=== PATIENT | female | born 1950 | race Caucasian/White ===

== ENCOUNTER 2016-04-09 06:26 | Inpatient (IN) | payer OTHER, MEDICARE ==
[~2016-04-09] VITALS: Ht 167.6 cm; Wt 74.8 kg
[~2016-04-09 06:26] MED LIST: ADVIL200 MG PO; ATIVAN1 M1 PO; BENADRYL 50 MG50 MG PO; BENADRYL ALLERG25 M1 PO; BREO ELLIPTA1 POW INH; FENTANYL25 MCG/HR TOP; LEVOTHYROXINE0.15 MG PO; LEVOTHYROXINE0.2 M2 PO; LEVOTHYROXINE200 MC1 PO; LISINOPRIL10 MG PO; LISINOPRIL5 M1 PO; LOVASTATIN20 MG PO; MAGNESIUM OXID400 MG PO; NOVAPLUS F100 MCG/HR TOP; NOVAPLUS FE50 MCG/HR TOP; OMEPRAZOLE20 M2 PO; OXYCODONE HCL20 M1 PO; OXYCODONE HCL20 MG PO; OXYCODONE HCL30 MG PO; PHENERGAN25 MG PR; PRAVACHOL20 M2 PO; PROMETHAZINE25 M1 PO; REQUIP 0.5MG0.5 MG PO; SPIRIVA18 MCG INH; SYNTHROID0.175 MG PO; VENTOLIN HFA18 GM INH; VITAMIN D50000 IU PO; ZANAFLEX4 M1 PO; ZOFRAN4 M1 PO; ZOLOFT 100 MG100 MG PO
--- NOTE | 2016-04-09 06:39 | NUR ---
PT BIBA FROM HOME. PT WAS FOUND WITHOUT HER BIPAP ON THIS AM. PER EMS 02 SAT 83%. PER EMS FAMILY STATES PT IS SLOW TO RESPOND AT BASELINE, BUT THE PAST COUPLE DAYS PT HAS BEEN EVEN SLOWER WITH RESPONDING. UPON ED ARRIVAL PT 88% ON RA. PLACED ON 4L NC AT 94%. PT NONVERBAL AT THIS TIME BUT RESPONSIVE TO PAIN.
--- NOTE | 2016-04-09 06:41 | NUR ---
DR FULLER AT BEDSIDE FOR EVAL.
--- NOTE | 2016-04-09 06:51 | ED GENERAL ADULT ---
History of Present Illness General Chief Complaint: Dyspnea (COPD, CHF, Other) Stated Complaint: BIBA LOW 02 Source: old records, EMS Exam Limitations: confusion Vital Signs & Intake/Output Vital Signs & Intake/Output Vital Signs Date Time Temp Pulse Resp B/P Pulse O2 O2 Flow FiO2 Ox Delivery Rate 04/09 925 69 20 109/71 97 BIPAP 04/09 0818 71 97 04/09 0801 75 18 126/64 98 BIPAP 04/09 0734 99.6 85 18 85/55 95 BIPAP 04/09 0720 87 94 04/09 0703 94 Nasal 4.0L Cannula 04/09 0640 100.1 97 16 90/52 94 Nasal 4.0L Cannula Allergies Coded Allergies: diazepam (SWELLING 07/14/15) gabapentin (UNKNOWN 07/14/15) methadone (SWELLING 07/14/15) NSAIDS (Non-Steroidal Anti-Inflamma (Intermediate, HISTORY OF ULCERS 07/14/15) morphine (Intermediate, AGITATION 07/14/15) adhesive tape (RASH 07/14/15) Triage Note: PT BIBA FROM HOME. PT WAS FOUND WITHOUT HER BIPAP ON THIS AM. PER EMS 02 SAT 83%. PER EMS FAMILY STATES PT IS SLOW TO RESPOND AT BASELINE, BUT THE PAST COUPLE DAYS PT HAS BEEN EVEN SLOWER WITH RESPONDING. UPON ED ARRIVAL PT 88% ON RA. PLACED ON 4L NC AT 94%. PT NONVERBAL AT THIS TIME BUT RESPONSIVE TO PAIN. Triage Nurses Notes Reviewed? yes HPI: Patient has been lethargic ever since her stroke however she has been more lethargic over the past 3 days. Family went to check on her this morning and found her almost unresponsive in bed. Patient is taken off her BiPAP mask at some point during the night. Upon EMS arrival patient's oxygen saturation was in the mid 70s. Patient was given a nebulizer and placed on oxygen and her O2 sat slowly improved. Patient is currently only open up her eyes to command and the only verbal response we got was "yes"and patient is not adding anything further to the history. (JONNY RASHEED,TIA Curry) Reconcile Medications Albuterol Sulfate (Ventolin Hfa) 90 MCG HFA.AER.AD 2 PUFF PO PRN COPD ( Reported) ERGOCALCIFEROL (VITAMIN D2) (Vitamin D2) 50,000 UNIT CAPSULE 1 CAP PO Q10D VIT D DEFFICIENCY (Reported) FLUTICASONE/VILANTEROL (Breo Ellipta 100-25 Mcg INH) 100 MCG-25 MCG/DOSE BLST.W.DEV 1 PUFF INH DAILY copd Levothyroxine Sodium 112 MCG TABLET 1 TAB PO DAILY thyroid (Reported) Lisinopril 5 MG TABLET 10 MG PO DAILY HYPERTENSION Lorazepam (Ativan) 1 MG TAB 1-2 TAB PO TID PRN ANXIETY (Reported) Omeprazole 20 MG CAPSULE.DR 40 MG PO DAILY AC [facility] OXYCODONE HCL (Oxycodone HCl) 30 MG TABLET 1 TAB PO 4 TIMES/DAY PRN PAIN ( Reported) Pravastatin Sodium (Pravastatin) 20 MG TAB 1 TAB PO QPM CHOLESTEROL (Reported ) Ropinirole Hydrochloride (Requip 0.5MG) 0.5 MG TAB 0.5 TAB PO TID RESTLESS LEG SYNDROME Tiotropium Peever (Spiriva) 18 MCG CAP.W.DEV 1 CAP INH DAILY COPD (Reported) Tizanidine Hydrochloride (Zanaflex) 4 MG TAB 1 TAB PO 4 TIMES/DAY MUSCLE SPASMS (Reported) (SUSHMA RASHEED,CHINMAY) Past History Travel History Traveled to [place] past 21 day No Medical History Any Pertinent Medical History? 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 No (JONNY RASHEED,TAI Curry) Review of Systems Review of Systems Constitutional: Reports: see HPI. (JONNY RASHEED,TIA Curry) Physical Exam Physical Exam General Appearance: well developed/nourished, alert, awake, moderate distress Head: atraumatic, normal appearance Eyes: Bilateral: PERRL, EOMI. Ears, Nose, Throat: normal pharynx, normal ENT inspection, hearing grossly normal Neck: normal inspection, supple, full range of motion Respiratory: normal breath sounds, chest non-tender, no respiratory distress, lungs clear Cardiovascular: regular rate/rhythm, normal peripheral pulses Gastrointestinal: normal bowel sounds, soft, non-tender, no organomegaly Back: normal inspection, normal range of motion Extremities: normal inspection, normal capillary refill, normal range of motion, no edema Neurologic/Psych: NOT FOLLOWING COMMANDS. pATIENT MOVES ALL 4 EXTREMITIES INDEPENDENTLY. pATIENT WILL OPEN UP HER EYES TO VERBAL COMMAND. Reflexes: 2+: knee (R), knee (L). Skin: intact, normal color, warm/dry Lymphatic: no anterior cervical gretchen Core Measures ACS in differential dx? Yes CVA/TIA Diagnosis: No Severe Sepsis Present: No Septic Shock Present: No (JONNY RASHEED,TIA Curry) Progress Differential Diagnoses I considered the following diagnoses in my evaluation of the patient: [AMI, electrolyte abnormality, CVA, hypercarbic respiratory failure, UTI, pneumonia] Plan of Care: Orders Procedure Date/time Status CBC WITHOUT DIFFERENTIAL 04/10 06 Active BASIC ELECTROLYTES PLUS BUN&CR 04/10 0600 Active Heart Healthy Diet 04/09 L Active ARTERIAL BLOOD GAS (GEN) 04/09 1200 Complete BIPAP 04/09 0918 Complete Pathway - chart 04/09 0856 Active Code Status 04/09 0856 Active URINE DRUGS OF ABUSE 04/09 0853 Active Patient Data 04/09 0851 Active TRC EVALUATION (GEN) 04/09 0844 Active Admit to inpatient 04/09 0803 Active Vital Signs 04/09 0803 Active Code Status 04/09 0803 Complete URINALYSIS 04/09 0730 Active EKG 04/09 0729 Active BIPAP 04/09 0720 Complete Add-on Test (ER Only) 04/09 0651 Active Intake & Output 04/09 0641 Active ARTERIAL BLOOD GAS (GEN) 04/09 0636 Complete Telemetry/Infrastructure Administrator 04/09 0636 Active BLOOD CULTURE 04/09 0636 Active TROPONIN LEVEL 04/09 0636 Complete MAGNESIUM 04/09 0636 Complete COMPREHENSIVE METABOLIC PANEL 04/09 0636 Complete CBC WITHOUT DIFFERENTIAL 04/09 0636 Complete INCENTIVE SPIROMETRY TRX (GEN) 04/09 UNK Active House Staff 04/09 UNK Active VTE Mechanical Prophylaxis 04/09 UNK Active Vital Signs 04/09 UNK Active Current Medications Sig/Sol Start time Last Medication Dose Stop Time Status Admin Omeprazole 40 MG DAILY AC 04/10 0700 AC (Prilosec) Methylprednisolone 40 MG Q8 04/10 0600 AC (Solumedrol) Pravastatin Sodium 20 MG 1700 04/09 1700 AC (Pravachol) Tizanidine HCl 4 MG Q6 04/09 1200 AC (Zanaflex) Lisinopril 10 MG DAILY 04/09 1000 CAN (Prinivil) Oxycodone HCl 30 MG 4 TIMES/DAY PRN 04/09 0945 AC (Roxicodone) Lorazepam 1 MG TID PRN 04/09 0900 AC (Ativan) Laboratory Tests 04/09/16 1200: pH 7.35, pCO2 55 H, pO2 72 L, HCO3 30 H, ABG O2 Sat (Measured) 95.0 L, P-50 (Temp Corrected) N, Carboxyhemoglobin 2.9, O2 Concentration % 4L, Respiration Rate 0, O2 Delivery Method BIPAP, Vent Mode ST, Expiratory Pressure 6, Inspiratory Pressure 16, Phlebotomy Draw Site RIGHT BRACHIAL 04/09/16 0650: pH 7.30 *L, pCO2 65 *H, pO2 71 L, HCO3 32 H, ABG O2 Sat (Measured) 94.0 L, P- 50 (Temp Corrected) N, Carboxyhemoglobin 3.0, O2 Concentration % 4L, O2 Delivery Method N/C, Phlebotomy Draw Site RIGHT BRACHIAL 04/09/16 0647: Anion Gap 13, Estimated GFR > 60, BUN/Creatinine Ratio 25.6 H, Glucose 91, Calcium 9.6, Magnesium 1.8, Total Bilirubin 0.9, AST 26, ALT 28, Alkaline Phosphatase 66, Troponin I 0.06, Total Protein 7.8, Albumin 4.4, Globulin 3.4, Albumin/Globulin Ratio 1.3, CBC w Diff NO MAN DIFF REQ, RBC 5.65 H, MCV 89.4, MCH 29.3, RDW 14.7 H, MPV 9.3, Gran % 89.7 H, Lymphocytes % 5.9 L, Monocytes % 3.8, Eosinophils % 0, Basophils % 0.6, Absolute Granulocytes 10.7 H, Absolute Lymphocytes 0.7 L, Absolute Monocytes 0.5, Absolute Eosinophils 0, Absolute Basophils 0.1, PUBS MCHC 32.7 L Microbiology 04/09 655 BLOOD: Blood Culture - RECD 04/09 646 BLOOD: Blood Culture - RECD 7:20 AM Patient signed out to me by Dr. Taylor. Pending labs, xray. Respiratory therapy looking for a bipap unit. (CHINMAY ORDAZ MD) Initial ED EKG: SINUS RHYTHM WITH INFERIOR q WAVES AND NONSPECIFIC st-t CHANGES. nO CHANGE FROM PRIOR ekg. Prior EKG: unchanged Rhythm Strip: normal sinus rhythm Hand-Off Endorsed To: CHINMAY ORDAZ MD Endorsed Time: 0700 Pending: CT, labs (JONNY RASHEED,TIA Curry) Diagnostic Imaging: Viewed by Me: Radiology Read, CT Scan. Discussed w/RAD: Radiology Read, CT Scan. Radiology Impression: EXAM TYPE: CAT - CT HEAD WO IV CONTRAST EXAMINATION: CT HEAD WITHOUT CONTRAST CLINICAL INFORMATION: CVA, confusion COMPARISON: 2015 TECHNIQUE: Contiguous axial imaging was performed from the skull base to vertex without intravenous administration of contrast. DLP: 600.71 mGy-cm. FINDINGS: There is no evidence of acute intracranial hemorrhage or territorial infarction. No abnormal mass effect or midline shift is seen. Oates to white matter differentiation is well preserved. No extra-axial fluid collections are identified. The ventricles are normal in size. There is a region of encephalomalacia in the inferior left cerebellar hemisphere, at the site of prior hemorrhage seen on 07/16/2015. There is moderate periventricular white matter hypoattenuation consistent with chronic small vessel ischemic disease. A chronic appearing lacunar infarct is noted in the right basal ganglia. There is mild periventricular white matter hypoattenuation consistent with chronic small vessel ischemic disease. The osseous structures and soft tissues are normal. The mastoid air cells and visualized portions of the paranasal sinuses are well aerated. IMPRESSION: No acute intracranial pathology. Chronic changes as described above. CXR Impression: EXAM TYPE: RAD - XRY-PORTABLE CHEST XRAY EXAMINATION: XR PORTABLE CHEST CLINICAL INFORMATION: Shortness of breath COMPARISON: CT 2015 TECHNIQUE: Portable view of the chest was obtained. FINDINGS: Lung volumes are symmetric. There is relative lucency of the upper lungs, in keeping with emphysema. No focal consolidation is seen. No evidence of pneumothorax, pleural effusion, or pulmonary edema. Cardiac size is within normal limits. There is mild prominence of the main pulmonary artery. Calcification is present at the aortic arch. No acute osseous findings are seen. IMPRESSION: No focal consolidation. Emphysema. (CHINMAY ORDAZ MD) Departure Departure Disposition: STILL A PATIENT Condition: Stable Clinical Impression Primary Impression: Hypercapnic respiratory failure Secondary Impressions: Confusion, Hypercarbia Referrals: JEFRY DESHPANDE,DUGLAS SHAFER (PCP/Family) Departure Forms: Customer Survey General Discharge Information (TIA TAYLOR MD) Departure Time of Disposition: 803 Prescriptions: Current Visit Scripts Lisinopril 10 MG PO DAILY 30 Days Admission Note Spoke With: MAIKOL ALLEN MD Documentation of Exam: Documentation of any treatments & extenuating circumstances including Concerns Regarding Discharge (functional status, medication knowledge or non-compliance, living conditions, etc.) that warrant an admission rather than observation: [ BIPAP, REPEAT BLOOD GAS, TRC/NEBS, PULMONARY CONSULT. FOLLOW UP URINALYSIS, URINE TOXICOLOGY] (CHINMAY ORDAZ MD) Critical Care Note Critical Care Note Critical Care Time: mins: (30 MIN) (JONNY RASHEED,TIA Curry)
--- NOTE | 2016-04-09 06:58 | NUR ---
BLOOD CULTURES SENT TO LAB, OBTAINED WITH BUTTERFLY AND 2 DIFFERENT SITES, BY THIS RN AND OLVIN PIERRE. LABS SENT WELL (1 BLUE, 1 LAV, 1 SST, 1 DELUCA)
--- NOTE | 2016-04-09 07:00 | NUR ---
PER FAMILY PT NOT USUALLY ON 02 DURING THE DAY AT HOME, BUT FOR THE PAST COUPLE DAYS PT HAS BEEN ON 3.5L.
[2016-04-09 07:03] LABS: ABSOLUTE BASOPHIL COUNT 0.1 /CUMM (0.0-0.2); ABSOLUTE EOSINOPHIL COUNT 0 /CUMM (0.0-0.7); ABSOLUTE GRANULOCYTE CT 10.7 /CUMM (1.4-6.5); ABSOLUTE LYMPH COUNT 0.7 /CUMM (1.2-3.4); ABSOLUTE MONOCYTE COUNT 0.5 /CUMM (0.10-0.60); BASOPHIL % 0.6 % (0.0-2.0); EOSINOPHIL % 0 % (0-5); HEMATOCRIT 50.5 % (37-47); MEAN CORPUSCULAR HGB 29.3 PG (27.0-31.0); MEAN CORPUSCULAR HGB CONC 32.7 G/DL (33.0-37.0); MEAN CORPUSCULAR VOLUME 89.4 FL (81.0-99.0); MEAN PLATELET VOLUME 9.3 FL (7.4-10.4); RBC DISTRIBUTION WIDTH 14.7 % (11.5-14.5); RED BLOOD CELL CT 5.65 /CUMM (4.20-5.40); WHITE BLOOD CELL COUNT 11.9 /CUMM (4.8-10.8)
[2016-04-09 07:21] LABS: PLATELET COUNT 207 /CUMM (130-400)
[2016-04-09 07:22] LABS: GRANULOCYTE % 89.7 % (42.2-75.2)
--- NOTE | 2016-04-09 07:32 | NUR ---
ASSUMED CARE OF PT AT THIS TIME PT SITTING UP ON STRETCHER WITH EYES OPEN; RT CLAY IN ROOM TO PLACE PT ON BIPAP. B/P 85/55. DR ORDAZ AWARE AND IN ROOM FOR EVAL. 500 ML NORMAL SALINE INFUSING PER MAR. PT DENIES PAIN AND IS ABLE TO STATE SHE IS IN [facility]; DOES NOT RECALL HOW SHE GOT TO HOSPITAL THIS MORNING AND STATES SHE DOES NOT NORMALLY WEAR 02 AT HOME DURING THE DAY. FAMILY STATE PT HAD A BAD DAY ON NEW YEARS - "HER OXYGEN WAS LOW BUT WE PUT HER ON HER MACHINE AGAIN AND SHE CAME AROUND". WILL CONTINUE TO MONITOR.
--- NOTE | 2016-04-09 07:35 | RADIOLOGY REPORT ---
EXAMINATION: XR PORTABLE CHEST CLINICAL INFORMATION: Shortness of breath COMPARISON: CT 07/16/2015 TECHNIQUE: Portable view of the chest was obtained. FINDINGS: Lung volumes are symmetric. There is relative lucency of the upper lungs, in keeping with emphysema. No focal consolidation is seen. No evidence of pneumothorax, pleural effusion, or pulmonary edema. Cardiac size is within normal limits. There is mild prominence of the main pulmonary artery. Calcification is present at the aortic arch. No acute osseous findings are seen. IMPRESSION: No focal consolidation. Emphysema.
--- NOTE | 2016-04-09 07:44 | CT SCAN REPORT ---
EXAMINATION: CT HEAD WITHOUT CONTRAST CLINICAL INFORMATION: CVA, confusion COMPARISON: 07/16/2015 TECHNIQUE: Contiguous axial imaging was performed from the skull base to vertex without intravenous administration of contrast. DLP: 600.71 mGy-cm. FINDINGS: There is no evidence of acute intracranial hemorrhage or territorial infarction. No abnormal mass effect or midline shift is seen. Oates to white matter differentiation is well preserved. No extra-axial fluid collections are identified. The ventricles are normal in size. There is a region of encephalomalacia in the inferior left cerebellar hemisphere, at the site of prior hemorrhage seen on 07/16/2015. There is moderate periventricular white matter hypoattenuation consistent with chronic small vessel ischemic disease. A chronic appearing lacunar infarct is noted in the right basal ganglia. There is mild periventricular white matter hypoattenuation consistent with chronic small vessel ischemic disease. The osseous structures and soft tissues are normal. The mastoid air cells and visualized portions of the paranasal sinuses are well aerated. IMPRESSION: No acute intracranial pathology. Chronic changes as described above.
--- NOTE | 2016-04-09 08:02 | NUR ---
1ST 500 ML NORMAL SALINE BOLUS COMPLETE. B/P IMPROVED TO 126/64 2ND 500 ML BOLUS INFUSING PER MAR. PT REMAINS AWAKE, ALERT AND CONVERSANT ON BIPAP. FAMILY AT BEDSIDE.
[2016-04-09] MEDS ORDERED: LEVOTHYROXINE112 MCG PO (08:46)
[2016-04-09] MEDS ORDERED: LISINOPRIL5 M1 PO (08:48)
--- NOTE | 2016-04-09 08:53 | NUR ---
POC: REPEAT BLOOD GAS AT 0900 RT CLAY AWARE OF SAME
--- NOTE | 2016-04-09 09:24 | NUR ---
PER DR INGRAM, BIPAP SETTINGS WERE ADJUSTED BY RT CLAY AND BLOOD GAS WILL BE REPEATED IN "A FEW HOURS". PT ASKING TO EAT - BAGEL ORDERED THROUGH DIETARY. NORMAL SALINE INFUSING @ 75 ml/hr PER JUN. DR INGRAM AT BEDSIDE
--- NOTE | 2016-04-09 09:25 | NUR ---
PHARMACY CALLED FOR 1000 MEDS
--- NOTE | 2016-04-09 10:02 | History & Physical ---
GAMAL HADDAD 04/09/16 0946: General Information and HPI MD Statement: I have seen and personally examined SERENA WATSON and documented this H&P. The patient is a 66 year old F who presented with a patient stated chief complaint of [unresponsiveness]. Source of Information: patient, family, old records Exam Limitations: on bipap History of Present Illness: 66-year-old lady with past medical history of hypothyroidism post Graves, CVA with minimal residual, COPD on nocturnal BiPAP, 3.5 L oxygen in the morning, chronic back pain and oxycodone, restless leg syndrome, hyperlipidemia, daily a smoker 1 pack in 3 days, was brought to the hospital by family with chief complaint of unresponsiveness. Information was given by the patient and the family. The family reports that patient sometimes is noncompliant with the CPAP during the night. This morning CPAP was off and patient was unresponsive to verbal stimuli, not responding to the CPAP putting on her face. According to the family CPAP noncompliance sometimes happens and the patient is lethargic and drowsy the following day. However this time is different and it's worse. He also reported patient had mostly dry cough with very minimal phlegm for 3 or 2 days. Patient and the family denies chest pain, dizziness, nausea, vomiting, diarrhea, constipation, fevers, chills, recent sick contacts.Patient reports having occasional headaches as well. Vital signs on arrival blood pressure 90/52, respiratory 16, temperature 100.1, MN 94 , O2 saturation 94% on 4 L and then subsequently on BiPAP. ABG shows 7.3 pH, CO2 65, O2 71, WBC 11.9, hemoglobin 16.5, sodium 136, chloride 89, bicarbonate 34, creatinine 0.9, BUN 23 After 1 L of bolus normal saline blood pressure came back up to 126/69 CXR: showed emphysema head CT : Did not show any acute pathology Allergies/Medications Allergies: Coded Allergies: diazepam (SWELLING 07/14/15) gabapentin (UNKNOWN 07/14/15) methadone (SWELLING 07/14/15) NSAIDS (Non-Steroidal Anti-Inflamma (Intermediate, HISTORY OF ULCERS 07/14/15) morphine (Intermediate, AGITATION 07/14/15) adhesive tape (RASH 07/14/15) Home Med list Albuterol Sulfate (Ventolin Hfa) 90 MCG HFA.AER.AD 2 PUFF PO PRN COPD ( Reported) ERGOCALCIFEROL (VITAMIN D2) (Vitamin D2) 50,000 UNIT CAPSULE 1 CAP PO Q10D VIT D DEFFICIENCY (Reported) FLUTICASONE/VILANTEROL (Breo Ellipta 100-25 Mcg INH) 100 MCG-25 MCG/DOSE BLST.W.DEV 1 PUFF INH DAILY copd Levothyroxine Sodium 112 MCG TABLET 1 TAB PO DAILY thyroid (Reported) Lisinopril 5 MG TABLET 10 MG PO DAILY HYPERTENSION Lorazepam (Ativan) 1 MG TAB 1-2 TAB PO TID PRN ANXIETY (Reported) Omeprazole 20 MG CAPSULE.DR 40 MG PO DAILY AC [facility] OXYCODONE HCL (Oxycodone HCl) 30 MG TABLET 1 TAB PO 4 TIMES/DAY PRN PAIN ( Reported) Pravastatin Sodium (Pravastatin) 20 MG TAB 1 TAB PO QPM CHOLESTEROL (Reported ) Ropinirole Hydrochloride (Requip 0.5MG) 0.5 MG TAB 0.5 TAB PO TID RESTLESS LEG SYNDROME Tiotropium Welsh (Spiriva) 18 MCG CAP.W.DEV 1 CAP INH DAILY COPD (Reported) Tizanidine Hydrochloride (Zanaflex) 4 MG TAB 1 TAB PO 4 TIMES/DAY MUSCLE SPASMS (Reported) Past History Travel History Traveled to [place] past 21 day No Medical History Neurological: restless leg syndrome, NUMBNESS/NEUROPATHY BLE EENT: NONE Cardiovascular: hypertension, HIGH CHOLESTEROL Respiratory: COPD, emphysema Gastrointestinal: constipation, GERD, RUPTURED SPLEEN IN PAST Hepatic: cholelithiasis Renal: NONE Musculoskeletal: chronic back pain, disk herniation, NUMBNESS/BLE SPINAL FUSION Psychiatric: NONE Endocrine: Grave's disease, hypothyroidism Blood Disorders: NONE Cancer(s): NONE 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 Exam & Diagnostic Data Last 24 Hrs of Vital Signs/I&O Vital Signs Date Time Temp Pulse Resp B/P Pulse O2 O2 Flow FiO2 Ox Delivery Rate 04/09 0926 69 20 109/71 97 BIPAP 04/09 0918 71 97 04/09 0801 75 18 126/64 98 BIPAP 04/09 0734 99.6 85 18 85/55 95 BIPAP 04/09 0720 87 94 04/09 0703 94 Nasal 4.0L Cannula 04/09 0640 100.1 97 16 90/52 94 Nasal 4.0L Cannula Intake & Output 04/09 1600 04/09 0800 04/09 0000 Intake Total 1000 0 Output Total Balance 1000 0 Intake, IV 1000 Intake, Oral 0 Patient 165 lb Weight Physical Exam General Appearance Alert, Oriented X3, Cooperative, No Acute Distress, on bipap Cardiovascular Regular Rate, Normal S1, Normal S2 Lungs decreased breath sounds bilaterally Abdomen Normal Bowel Sounds, No Tenderness Neurological Strength at 5/5 X4 Ext Extremities No Clubbing, No Cyanosis, No Edema, healed ecchymosis on the right knee Assessment/Plan Assessment: 66-year-old lady with past medical history of hypothyroidism post Graves, CVA with minimal residual, COPD on nocturnal BiPAP, 3.5 L oxygen in the morning, chronic back pain and oxycodone, restless leg syndrome, hyperlipidemia, daily a smoker 1 pack in 3 days, was brought to the hospital by family with chief complaint of unresponsiveness. According to the family CPAP noncompliance sometimes happens and the patient is lethargic and drowsy the following day. However this time is different and it's worse. He also reported patient had mostly dry cough with very minimal phlegm for 3 or 2 days. Vital signs on arrival blood pressure 90/52, respiratory 16, temperature 100.1, MN 94 , O2 saturation 94% on 4 L and then subsequently on BiPAP. ABG shows 7.3 pH, CO2 65, O2 71, WBC 11.9, hemoglobin 16.5, sodium 136, chloride 89, bicarbonate 34, creatinine 0.9, BUN 23 After 1 L of bolus normal saline blood pressure came back up to 126/69 CXR: showed emphysema head CT : Did not show any acute pathology EKG showed process 78, NSR, reverse P waves in V1, QTC 455, no acute ST-T changes Assessment and plan #Acute respiratory failure due to CPAP noncompliance and COPD exacerbation -TRC nebs and continue inhalers -Admit to general floor -BiPAP for at least 8 hours -ABG at noon -125 mg Solu-Medrol once and continue 40 mg Q8 -Azithromycin for 5 doses -Blood culture and try to get the sputum culture -Check urine tox -We'll follow Dr. Gaspar -Smoking cessation #hx of hypertension / hypotensive -Hold lisinopril for now -IV hydration for one back -Heart healthy diet #Chronic back pain, restless legs syndrome, anxiety -Continue oxycodone when necessary, continue tizanidine, continue Requip, continue Ativan when necessary #Hypothyroidism -Continue levothyroxine #GERD, hyperlipidemia -Continue omeprazole and statin #DVT prophylaxis is ALP S and enoxaparin, DNR/DNI, oxycodone for pain, heart healthy diet As Ranked By This Provider Problem List: 1. Hypercarbia 2. Confusion Core Measures/Miscellaneous Acute Coronary Syndrome ACS Diagnosis: No Cerebrovascular Accident CVA/TIA Diagnosis: No Congestive Heart Failure CHF Diagnosis: No Venous Thromboembolism VTE Risk Factors: Age > 40 VTE Prophylaxis Ordered Inpt: Mech & Pharm No Mech VTE prophylaxis d/t: No contraindications No VTE Pharm Prophylaxis d/t: No contraindications VTE Diagnosis: No VTE Type: NONE VTE Confirmed by (Test): NONE Severe Sepsis Severe Sepsis Present: No Septic Shock Septic Shock Present: No Miscellaneous Documentation Attending Case Discussed With: MAIKOL ALLEN MD Primary Care Physician: DUGLAS TAVERA Patient sees these Specialists dr carter Level of Patient Care: General Medicine MAIKOL ALLEN MD 04/10/16 1250: Attending MD Review Statement Attending Statement Attending MD Statement: examined this patient, discuss w/resident/PA/LANDMAN, agreed w/resident/PA/LANDMAN, reviewed EMR data (avail) Attending Assessment/Plan: 66F PMH COPD on nocturnal home oxygen, history of CVA, chronic back pain on chronic opioids presenting with confusion, unresponsiveness, and dyspnea in the setting of acute hypercarbic respiratory failure. Dry cough and worsenin dyspnea for 2-3 days, poorly compliant with CPAP, continues to smoke. Started on BiPAP initially in ED with improvement in mental status. Plan - Admit to general medicine - Start Solumedrol 40mg q8h - TRC/nebulizer treatments - Start Azithromycin - Continue PRN BiPAP - Oxygen PRN goal sat >92% - Continue home medicaitons - DVT PPx - Follow pulmonary recommendatins
--- NOTE | 2016-04-09 10:15 | NUR ---
PT TAKEN OFF BIPAP FOR APPROX 5-8 MINUTES. DRANK 1 CAN RICHY JUDSON. MED WITH 1000 PO MEDS PER MAR, INCLUDING 2 INHALERS. PLACED BACK ON BIPAP, TOLERATED WELL.
--- NOTE | 2016-04-09 10:30 | NUR ---
MED WITH SOLU MEDROL AND ZITRHOMAX PER MAR. BIPAP REMAINS. PT ANSWERS QUESTIONS THROUGH MASK. INFORMED A URINE SAMPLE IS NEEDED WHEN ABLE.
--- NOTE | 2016-04-09 10:43 | Cons- Pulmonary ---
General Information and HPI Consulting Request Date of Consult: 04/09/16 Requested By: Dr. Parada Reason for Consult: hypercarbic resp failure Source of Information: patient Exam Limitations: no limitations History of Present Illness: 66 year old woman admitted for hypercarbic respiratory failure after resuming smoking. CVA hemorrhagic history left cerebral hemisphere. It was determined that she had PRODUCTION PROOFREADER stroke and hemorrhage. Patient now DNR/DNI. A tiny PFO noted. ROBINA without evidence of thrombus or mass apical wall motion abnormalities were not noted. Using her CPAP. Mask fits well, no mask leaks, compliant, feels better and without daytime somnolence. On spiriva, BREO with rinsing of the mouth. She is on her inhalers however continues to smoke and resumed smoking more up to a few cigarettes daily, second hand smoke exposure as well, despite quitting attempts. Sleep study was performed she has 88 arousals supine AHI as high as 25.3. CPAP was ordered awaiting equipment. Narrow complex tachycardia overnight. She also has a previous diagnosis of restless legs and is treated adequately without any changes. She does not believe that she had those symptoms during driving. When she does take her inhalers she is maintained on BREO and Spiriva. Restless leg syndrome controlled on Requip three times daily. Hypercarbia 7.3/65/71 required bipap. Repeat abg pending. CXR with emphysema changes. Allergies/Medications Allergies: Coded Allergies: diazepam (SWELLING 07/14/15) gabapentin (UNKNOWN 07/14/15) methadone (SWELLING 07/14/15) NSAIDS (Non-Steroidal Anti-Inflamma (Intermediate, HISTORY OF ULCERS 07/14/15) morphine (Intermediate, AGITATION 07/14/15) adhesive tape (RASH 07/14/15) Home Med List: Albuterol Sulfate (Ventolin Hfa) 90 MCG HFA.AER.AD 2 PUFF PO PRN COPD ( Reported) ERGOCALCIFEROL (VITAMIN D2) (Vitamin D2) 50,000 UNIT CAPSULE 1 CAP PO Q10D VIT D DEFFICIENCY (Reported) FLUTICASONE/VILANTEROL (Breo Ellipta 100-25 Mcg INH) 100 MCG-25 MCG/DOSE BLST.W.DEV 1 PUFF INH DAILY copd Levothyroxine Sodium 112 MCG TABLET 1 TAB PO DAILY thyroid (Reported) Lisinopril 5 MG TABLET 10 MG PO DAILY HYPERTENSION Lorazepam (Ativan) 1 MG TAB 1-2 TAB PO TID PRN ANXIETY (Reported) Omeprazole 20 MG CAPSULE.DR 40 MG PO DAILY AC [facility] OXYCODONE HCL (Oxycodone HCl) 30 MG TABLET 1 TAB PO 4 TIMES/DAY PRN PAIN ( Reported) Pravastatin Sodium (Pravastatin) 20 MG TAB 1 TAB PO QPM CHOLESTEROL (Reported ) Ropinirole Hydrochloride (Requip 0.5MG) 0.5 MG TAB 0.5 TAB PO TID RESTLESS LEG SYNDROME Tiotropium [place] (Spiriva) 18 MCG CAP.W.DEV 1 CAP INH DAILY COPD (Reported) Tizanidine Hydrochloride (Zanaflex) 4 MG TAB 1 TAB PO 4 TIMES/DAY MUSCLE SPASMS (Reported) Current Medications: Current Medications Sig/Sol Start time Last Medication Dose Route Stop Time Status Admin Azithromycin 500 MG DAILY 04/09 1000 AC 04/09 Sodium Chloride 250 ML IV 04/13 1059 1030 Budesonide/ 2 PUF BID 04/09 1000 AC 04/09 Formoterol Fumarate INH 1015 Levothyroxine Sodium 0.112 MG DAILY AC 04/09 0900 AC 04/09 PO 1014 Lisinopril 10 MG DAILY 04/09 1000 CAN PO Lorazepam 1 MG TID PRN 04/09 0900 AC PO Methylprednisolone 40 MG Q8 04/10 0600 AC IV Methylprednisolone 0 .STK-MED ONE 04/09 1020 DC .ROUTE Methylprednisolone 125 MG ONCE ONE 04/09 0945 DC 04/09 IV 04/09 0946 1029 Omeprazole 40 MG DAILY AC 04/10 0700 AC PO Oxycodone HCl 30 MG 4 TIMES/DAY PRN 04/09 0945 AC PO Pravastatin Sodium 20 MG 1700 04/09 1700 AC PO Ropinirole HCl 0.25 MG TID 04/09 1000 AC 04/09 PO 1015 Sodium Chloride 1,000 ML Q13H 04/09 0915 AC 04/09 IV 04/09 2214 0924 Sodium Chloride 500 ML BOLUS ONE 04/09 0730 DC 04/09 IV 04/09 0829 0732 Sodium Chloride 500 ML BOLUS ONE 04/09 0730 DC 04/09 IV 04/09 0829 0802 Tiotropium [place] 1 PUF DAILY 04/09 1000 AC 04/09 INH 1015 Tizanidine HCl 4 MG Q6 04/09 1200 AC PO Review of Systems Comments 18 point Review of Systems performed. Positive and negative pertinent findings are deliniated in the HPI. Otherwise the ROS is negative. 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: BRYNN Surgical History Surgical History: cholecystectomy, hysterectomy, spinal fusion, ROTATOR CUFF X 2 cervical and lumbar surgery Family History Relations & Conditions If Any: Relation not specified for: *No pertinent family history Psychosocial History Services at Home: Oxygen Smoking Status: Current Everyday Smoker (1 pack 3 days) ETOH Use: denies use, 6 Illicit Drug Use: denies illicit drug use, UTD Exam & Diagnostic Data Last 24 Hrs of Vital Signs/I&O Vital Signs Date Time Temp Pulse Resp B/P Pulse O2 O2 Flow FiO2 Ox Delivery Rate 04/09 0926 69 20 109/71 97 BIPAP 04/09 0918 71 97 04/09 0801 75 18 126/64 98 BIPAP 04/09 0734 99.6 85 18 85/55 95 BIPAP 04/09 0720 87 94 04/09 0703 94 Nasal 4.0L Cannula 04/09 0640 100.1 97 16 90/52 94 Nasal 4.0L Cannula Intake & Output 04/09 1600 04/09 0800 04/09 0000 Intake Total 1000 0 Output Total Balance 1000 0 Intake, IV 1000 Intake, Oral 0 Patient 165 lb Weight Physical Exam Other Physical Findings: General - Alert, awake and oriented HEENT - normocephalic, atraumatic Cardiovascular - S1, S2 Lungs - bilatearl rare rhonchi, prolonged end expiratory phase Abdomen - soft, bowel sounds positive, no tenderness Extremities - without edema or cyanosis Last 48 Hrs of Labs/Jamison: Laboratory Tests 04/09/16 0650: pH 7.30 *L, pCO2 65 *H, pO2 71 L, HCO3 32 H, ABG O2 Sat (Measured) 94.0 L, P- 50 (Temp Corrected) N, Carboxyhemoglobin 3.0, O2 Concentration % 4L, O2 Delivery Method N/C, Phlebotomy Draw Site RIGHT BRACHIAL 04/09/16 0647: Anion Gap 13, Estimated GFR > 60, BUN/Creatinine Ratio 25.6 H, Glucose 91, Calcium 9.6, Magnesium 1.8, Total Bilirubin 0.9, AST 26, ALT 28, Alkaline Phosphatase 66, Troponin I 0.06, Total Protein 7.8, Albumin 4.4, Globulin 3.4, Albumin/Globulin Ratio 1.3, CBC w Diff NO MAN DIFF REQ, RBC 5.65 H, MCV 89.4, MCH 29.3, RDW 14.7 H, MPV 9.3, Gran % 89.7 H, Lymphocytes % 5.9 L, Monocytes % 3.8, Eosinophils % 0, Basophils % 0.6, Absolute Granulocytes 10.7 H, Absolute Lymphocytes 0.7 L, Absolute Monocytes 0.5, Absolute Eosinophils 0, Absolute Basophils 0.1, PUBS MCHC 32.7 L Assessment/Plan Impression/Plan: Impression 66 year old woman admitted for hypercarbic respiratory failure after resuming smoking. CVA hemorrhagic history left cerebral hemisphere. It was determined that she had PRODUCTION PROOFREADER stroke and hemorrhage. Patient now DNR/DNI. A tiny PFO noted. ROBINA without evidence of thrombus or mass apical wall motion abnormalities were not noted. Using her CPAP. Mask fits well, no mask leaks, compliant, feels better and without daytime somnolence. On spiriva, BREO with rinsing of the mouth. She is on her inhalers however continues to smoke and resumed smoking more up to a few cigarettes daily, second hand smoke exposure as well, despite quitting attempts. Sleep study was performed she has 88 arousals supine AHI as high as 25.3. CPAP was ordered awaiting equipment. Narrow complex tachycardia overnight. She also has a previous diagnosis of restless legs and is treated adequately without any changes. She does not believe that she had those symptoms during driving. When she does take her inhalers she is maintained on BREO and Spiriva. Restless leg syndrome controlled on Requip three times daily. Hypercarbia 7.3 required bipap. Repeat abg pending. CXR with emphysema changes. Plan -reduce solumedrol to 40mg iv q8h -zithromax 5 days -trc/nebs -d/c symbicort - takes breo at home - can bring in her own, or wait until d/c -repeat abg today, if improved would resume nocturnal CPAP @ 6cmH20 nocturnally -smoking cessation counseling -dvt prophylaxis at all times Thank you in allowing me to participate in the care of this patient. I will continue to follow along with the patient's progress. Please do not hesitate to call about any questions or issues. Consult Acknowledgment - Thank you for your consult request.
--- NOTE | 2016-04-09 11:15 | NUR ---
REPORT GIVEN TO OLVIN GIANG
[2016-04-09 16:50] VITALS: BP 136/66
--- NOTE | 2016-04-09 16:52 | Admission Certification ---
Admission Certification Certification Statement - As attending physician, I certify that at the time of - admission, based on clinical presentation, severity of - symptoms, need for further diagnostic testing and - therapeutic interventions, and risk of adverse outcomes - without in-hospital treatment, in my clinical assessment, - this patient requires an acute hospital stay for a minimum - of two nights or longer. I have also considered psychsocial - factors such as support system, advanced age, financial - issues, cognitive issues, and failed out-patient treatments, - past re-admission history, safety of patient, and lack of - compliance as applicable. Specific rationale supporting this admission is: Acute hypercarbic respiratory failure
--- NOTE | 2016-04-09 19:12 | NUR ---
PT ASSIGNED BED 201
--- NOTE | 2016-04-09 20:03 | NUR ---
REPORT GIVEN TO Joseph FABIAN ON B. PT. PREPARING FOR TRANSPORT. PT. AT BEDSIDE. VITAL SIGNS STABLE AT THIS TIME. PT. IS ALERT AND ORIENTED. NO ACUTE DISTRESS NOTED.
--- NOTE | 2016-04-09 20:10 | NUR ---
TRANSPORT CALLED AND SCHEDULED WITH
[2016-04-09 20:56] VITALS: BP 146/78
--- NOTE | 2016-04-09 23:59 | NUR ---
NURSING NOTE; LATE ENTRY; PT ADMITTED TO ROOM 201-01 AT 2030 VIA STRETCHER FROM THE ER. PT AMBULATED TO BED WITH AN ASSISTX1. PT ALERT AND ORIENTEDX3 BUT HAS AN UNSTEADY GAIT. PT AFEBRILE, DENIES CP AND HAS +PULSES TO EXTREMITIES. PT ON 4LNC WITH AN 02 SAT OF 94%, LUNGS ARE DIMINISHED. PT HAS NO SKIN BREAKDOWN. PT COMPLAINING OF 7 OUT OF 10 PAIN TO HER LOWER BACK. PT MEDICATED WITH PRN PAIN MED. IVF RUNNING PER EMAR. PT ORIENTED TO ROOM AND CALL ALEJANDRA. WILL CONTINUE TO MONITOR.
[2016-04-10 00:42] VITALS: BP 140/80
--- NOTE | 2016-04-10 06:00 | NUR ---
PT IS A&OX3 AND HAS A HISTORY OF FALLS. THIS MORNING PT ASKED IF THE BED ALARM CAN BE REMOVED. PT WAS TOLD SHE NEEDS TO CALL FOR HELP IF SHE NEEDS TO GET UP. PT STATED UNDERSTANDING AND SAID SHE WILL USE CALL ALEJANDRA. BED ALARM NOT IN PLACE AT THIS TIME PER PT REQUEST. WILL CONTINUE TO MONITOR.
[2016-04-10 08:03] LABS: ABSOLUTE BASOPHIL COUNT 0 /CUMM (0.0-0.2); ABSOLUTE EOSINOPHIL COUNT 0 /CUMM (0.0-0.7); ABSOLUTE GRANULOCYTE CT 2.9 /CUMM (1.4-6.5); ABSOLUTE MONOCYTE COUNT 0.7 /CUMM (0.10-0.60); RED BLOOD CELL CT 5.31 /CUMM (4.20-5.40)
[2016-04-10 08:49] LABS: ABSOLUTE LYMPH COUNT 1.5 /CUMM (1.2-3.4); BASOPHIL % 0.4 % (0.0-2.0); EOSINOPHIL % 0.5 % (0-5); HEMATOCRIT 47.3 % (37-47); MEAN CORPUSCULAR HGB 29.7 PG (27.0-31.0); MEAN CORPUSCULAR HGB CONC 33.3 G/DL (33.0-37.0); MEAN CORPUSCULAR VOLUME 89.2 FL (81.0-99.0); MEAN PLATELET VOLUME 9.9 FL (7.4-10.4); PLATELET COUNT 170 /CUMM (130-400); RBC DISTRIBUTION WIDTH 14.7 % (11.5-14.5)
[2016-04-10 08:52] VITALS: BP 140/80
[2016-04-10 08:58] LABS: WHITE BLOOD CELL COUNT 5.1 /CUMM (4.8-10.8)
--- NOTE | 2016-04-10 09:07 | PN- Housestaff ---
SAMIR WILKES 04/10/16 0906: Subjective Follow-up For: COPD exacerbation Subjective: Reports feeling much better today offers no other complaints. Would like to ambulate Review of Systems Constitutional: Denies: chills, diaphoresis, fever, malaise, weakness, unexplained weight loss. Cardiovascular: Denies: chest pain, edema, orthopena, palpitations, peripheral edema, syncope. Respiratory: Denies: cough, hemoptysis, orthopnea, short of breath, sputum production, stridor, wheezing. Objective Last 24 Hrs of Vital Signs/I&O Vital Signs Date Time Temp Pulse Resp B/P Pulse O2 O2 Flow FiO2 Ox Delivery Rate 04/10 0852 98.3 63 20 140/80 93 Nasal 4.0L Cannula 04/10 0800 93 Nasal 4.0L Cannula 04/10 0455 58 98 04/10 0042 97.5 64 20 140/80 93 CPAP 04/10 0032 63 99 04/10 0000 93 CPAP 04/09 2056 98.4 68 20 146/78 91 Nasal 5.0L Cannula 04/09 2030 94 Nasal 4.0L Cannula 04/09 1952 98.1 71 22 141/82 94 Nasal 4.0L Cannula 04/09 1650 97.6 68 18 136/66 99 04/09 1457 71 92 04/09 1439 90 BIPAP 04/09 1205 74 95 Intake & Output 04/10 1600 04/10 0800 04/10 0000 Intake Total 120 525 Output Total 300 100 350 Balance -300 20 175 Intake, IV 225 Intake, Oral 120 300 Output, Urine 300 100 350 Physical Exam General Appearance: Alert, Oriented X3, Cooperative, No Acute Distress Cardiovascular: Regular Rate, Normal S1, Normal S2 Lungs: b/l rhonchi Abdomen: Normal Bowel Sounds, Soft Extremities: No Edema Assessment/Plan Assessment: 66-year-old woman current smoker with past medical history significant for hypothyroidism, CVA with minimal neurological deficits, COPD on nocturnal BiPAP and 3 L of oxygen in the morning, chronic back pain admitted to [facility] after she was found unresponsive, found to have hypercarbic hypoxic respiratory failure. Today she feels that her breathing has improved. Plan: Hypercarbic hypoxic respiratory failure Currently saturating the 93% on 4 L of oxygen taper oxygen tolerated TRC with nebs Will be Solu-Medrol every 12hrs today On azithromycin day 2 of 5 She does on Breo at home will hold while in the hospital as we don't carry it Will attempt further smoking cessation counseling prior to discharge Pulmn on board appreciate recommendations Hypothyroidism Continue home dose of Synthyroid CAD Continue statin Heart healthy diet DVT prophylaxis with Lovenox Patient is DNR/DNI Problem List: 1. Hypercapnic respiratory failure 2. COPD (chronic obstructive pulmonary disease) 3. Acute CVA (cerebrovascular accident) 4. Hypothyroid Pain Ratin Pain Location: Not applicable Pain Goal: Pain 4 or less Pain Plan: current regimen Tomorrow's Labs & Rationales: hypercarbia will follow BEP tomorrow MAIKOL ALLEN MD 04/10/16 1254: Attending MD Review Statement Attending Statement Attending MD Statement: examined this patient, discuss w/resident/PA/DIVERSIFIED CROPS II FARMWORKER, agreed w/resident/PA/DIVERSIFIED CROPS II FARMWORKER, reviewed EMR data (avail) Attending Assessment/Plan: 66F PMH COPD on nocturnal home oxygen, history of CVA, chronic back pain on chronic opioids presenting with confusion, unresponsiveness, and dyspnea in the setting of acute hypercarbic respiratory failure. Dry cough and worsenin dyspnea for 2-3 days, poorly compliant with CPAP, continues to smoke. Started on BiPAP initially in ED with improvement in mental status. Today feels much better, breathing improved and near baseline. At baseline mental status. Not requiring oxygen during the day. 1. Acute hypercarbic and hypoxemic respiratory failure 2. Acute exacerbation of COPD 3. Unresponsiveness (resolved) 4. Chronic lower back pain Plan - Taper Solumedrol to 40mg q12h with plan for further taper tomorrow - TRC/nebulizer treatments - Continue Azithromycin - Continue PRN BiPAP - Oxygen PRN goal sat >92% - Continue home medicaitons - DVT PPx - Follow pulmonary recommendations - Anticipated discharge tomorrow on Prednisone taper with outpatient follow up - Please send CMR to pharmacy and place anticipated discharge order - No labs necessary tomorrow
--- NOTE | 2016-04-10 10:37 | PN- Pulmonary ---
Subjective HPI/Critical Care Issues: pt seen and examined donig better comfortable on o2 sitting and eating breakfast no n/v/d/c no cp no dyspnea at rest Objective Current Medications: Current Medications Sig/Sol Start time Last Medication Dose Route Stop Time Status Admin Azithromycin 500 MG DAILY 04/09 1000 AC 04/10 Sodium Chloride 250 ML IV 04/13 1059 0905 Budesonide/ 2 PUF BID 04/09 2200 DC 04/09 Formoterol Fumarate INH 2232 Budesonide/ 2 PUF BID 04/09 1000 DC 04/09 Formoterol Fumarate INH 1015 Levothyroxine Sodium 0.112 MG DAILY AC 04/09 0900 AC 04/10 PO 0634 Lorazepam 1 MG TID PRN 04/09 0900 AC PO Methylprednisolone 40 MG Q8 04/10 0600 AC 04/10 IV 0634 Non-Formulary 0 SEE ADMIN CRITERIA 04/10 0715 CAN Medication ANY Non-Formulary 0 SEE ADMIN CRITERIA 04/09 1615 DC Medication ANY Omeprazole 40 MG DAILY AC 04/10 0700 AC 04/10 PO 0634 Oxycodone HCl 30 MG 4 TIMES/DAY PRN 04/09 0945 AC 04/09 PO 2049 Pravastatin Sodium 20 MG 1700 04/09 1700 AC 04/09 PO 1653 Ropinirole HCl 0.25 MG TID 04/09 1000 AC 04/10 PO 0905 Sodium Chloride 1,000 ML Q13H 04/09 0915 DC 04/09 IV 04/09 2214 0924 Tiotropium [place] 1 PUF DAILY 04/09 1000 AC 04/09 INH 1015 Tizanidine HCl 4 MG Q6 04/09 1200 AC 04/10 PO 0634 Vital Signs & I&O Last 24 Hrs of Vitals and I&O: Vital Signs Date Time Temp Pulse Resp B/P Pulse O2 O2 Flow FiO2 Ox Delivery Rate 04/10 0852 98.3 63 20 140/80 93 Nasal 4.0L Cannula 04/10 08 93 Nasal 4.0L Cannula 04/10 0455 58 98 04/10 0042 97.5 64 20 140/80 93 CPAP 04/10 0032 63 99 04/10 0000 93 CPAP 04/09 2055 98.4 68 20 146/78 91 Nasal 5.0L Cannula 04/09 2030 94 Nasal 4.0L Cannula 04/09 1951 98.1 71 22 141/82 94 Nasal 4.0L Cannula 04/09 1650 97.6 68 18 136/66 99 04/09 1457 71 92 04/09 1439 90 BIPAP 04/09 1205 74 95 Intake & Output 04/10 1600 04/10 0800 04/10 0000 Intake Total 120 525 Output Total 300 100 350 Balance -300 20 175 Intake, IV 225 Intake, Oral 120 300 Output, Urine 300 100 350 Exam Other Physical Findings: General - Alert, awake and oriented HEENT - normocephalic, atraumatic Cardiovascular - S1, S2 Lungs - bilatearl rare rhonchi, prolonged end expiratory phase Abdomen - soft, bowel sounds positive, no tenderness Extremities - without edema or cyanosis Results Last 24 Hrs of Lab Results: Laboratory Tests 04/10/16 0610: Anion Gap 13, Estimated GFR > 60, BUN/Creatinine Ratio 31.4 H, CBC w Diff NO MAN DIFF REQ, RBC 5.31, MCV 89.2, MCH 29.7, RDW 14.7 H, MPV 9.9, Gran % 56.0, Lymphocytes % 29.6, Monocytes % 13.5 H, Eosinophils % 0.5, Basophils % 0.4, Absolute Granulocytes 2.9, Absolute Lymphocytes 1.5, Absolute Monocytes 0.7 H, Absolute Eosinophils 0, Absolute Basophils 0, PUBS MCHC 33.3 04/09/162040: Urine Opiates Screen 1706.00, Methadone Screen 47, Barbiturate Screen < 60, Ur Phencyclidine Scrn 12.50, Amphetamines Screen < 100, U Benzodiazepines Scrn < 85 , Urine Cocaine Screen < 50, Urine Cannabis Screen < 5.00, Urinalysis MOD H, Urine Color MISHEL, Urine Clarity HAZY H, Urine pH 6.0, Ur Specific [place] >= 1.030, Urine Protein 30 H, Urine Ketones NEG, Urine Nitrite NEG, Urine Bilirubin NEG@ICTO, Urine Urobilinogen 1.0, Ur Leukocyte Esterase MOD H, Ur Microscopic SEDIMENT EXAMINED, Urine RBC RARE, Urine WBC 15-25 H, Ur Epithelial Cells FEW, Hyaline Casts RARE H, Granular Casts RARE H, Urine Mucus MOD H, Urine Hemoglobin NEG, Urine Glucose NEG 04/09/16 1200: pH 7.35, pCO2 55 H, pO2 72 L, HCO3 30 H, ABG O2 Sat (Measured) 95.0 L, P-50 (Temp Corrected) N, Carboxyhemoglobin 2.9, O2 Concentration % 4L, Respiration Rate 0, O2 Delivery Method BIPAP, Vent Mode ST, Expiratory Pressure 6, Inspiratory Pressure 16, Phlebotomy Draw Site RIGHT BRACHIAL Impression/Plan Impression/Plan Impression/Plan: Impression 66 year old woman admitted for hypercarbic respiratory failure after resuming smoking. CVA hemorrhagic history left cerebral hemisphere. It was determined that she had CLINICAL FACULTY stroke and hemorrhage. Patient now DNR/DNI. A tiny PFO noted. ROBINA without evidence of thrombus or mass apical wall motion abnormalities were not noted. Restless leg syndrome controlled on Requip three times daily. Plan -reduce solumedrol to 40mg iv q12h -zithromax 5 days -trc/nebs -d/c symbicort - takes breo at home - can bring in her own, or wait until d/c -nocturnal CPAP @ 6cmH20 nocturnally -smoking cessation counseling -dvt prophylaxis at all times Thank you in allowing me to participate in the care of this patient. I will continue to follow along with the patient's progress. Please do not hesitate to call about any questions or issues.
--- NOTE | 2016-04-10 10:58 | NUR ---
PATIENT 94% ON 4L NC WHILE AMBULATING; TITRATED DOWN TO RA PATIENT WAS 89% WHILE AMBULATING;
--- NOTE | 2016-04-10 14:03 | Patient Discharge Instructions ---
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 within 2 weeks of discharge Diet Recommended Diet: Heart Healthy Acute Coronary Syndrome Inclusion Criteria At DC or during hospital stay patient has or had the following: ACS DIAGNOSIS No Discharge Core Measures Meds if any: Prescribed or Continued at Discharge Meds if any: NOT Prescribed or Continued at Discharge Congestive Heart Failure Inclusion Criteria At DC or during hospital stay patient has or had the following: CHF DIAGNOSIS No Discharge Core Measures Meds if any: Prescribed or Continued at Discharge Meds if any: NOT Prescribed or Continued at Discharge Cerebrovascular accident Inclusion Criteria At DC or during hospital stay patient has or had the following: CVA/TIA Diagnosis No Discharge Core Measures Meds if any: Prescribed or Continued at Discharge Meds if any: NOT Prescribed or Continued at Discharge Venous thromboembolism Inclusion Criteria VTE Diagnosis No VTE Type NONE VTE Confirmed by (Test) NONE Discharge Core Measures - Per Current guidelines, there needs to be overlap - treatment for the first 5 days of Warfarin therapy. - If discharged on Warfarin prior to 5 days of - overlap therapy, the patient will need to be - assessed for post discharge needs including - *Post discharge parental anticoagulation - *Warfarin and/or parental anticoagulation education - *Follow up date to check INR post discharge At least 5 days overlap therapy as Inpatient No Meds if any: Prescribed or Continued at Discharge Note: Overlap Therapy is Warfarin and Anticoagulant Meds if any: NOT Prescribed or Continued at Discharge
[2016-04-10 15:53] VITALS: BP 152/70
[2016-04-10 16:13] VITALS: BP 130/80
[2016-04-11 00:36] VITALS: BP 140/90
[2016-04-11 08:13] VITALS: BP 150/82
--- NOTE | 2016-04-11 09:25 | PN- Housestaff ---
SAMIR WILKES 04/11/16 0908: Subjective Follow-up For: C OPD exacerbation Subjective: Seen and examined patient, offers no complaints says her breathing is much improved. States that she did walk yesterday around the floor and she did not feel short of breath Review of Systems Constitutional: Denies: chills, diaphoresis, fever, malaise, weakness, unexplained weight loss. Cardiovascular: Denies: chest pain, edema, orthopena, palpitations, peripheral edema, syncope. Respiratory: Denies: cough, hemoptysis, orthopnea, short of breath, sputum production, stridor, wheezing. Objective Last 24 Hrs of Vital Signs/I&O Vital Signs Date Time Temp Pulse Resp B/P Pulse O2 O2 Flow FiO2 Ox Delivery Rate 04/11 08 98.1 63 20 150/82 92 Nasal 4.0L Cannula 04/11 0747 Nasal 2.0L Cannula 04/11 0520 66 93 04/11 0057 64 95 04/11 0036 98.3 67 20 140/90 95 CPAP 04/11 0000 95 CPAP 4.0L 04/10 2246 60 96 04/10 2040 93 Nasal 2.0L Cannula 04/10 1613 130/80 04/10 1600 92 Nasal 2.0L Cannula 04/10 1553 98.3 68 20 152/70 94 Nasal 2.0L Cannula 04/10 1142 Nasal 2.0L Cannula 04/10 1141 92 Nasal 2.0L Cannula Intake & Output 04/11 1600 04/11 0800 04/11 0000 Intake Total 50 170 Output Total 250 400 Balance -200 -230 Intake, IV 0 20 Intake, Oral 50 150 Number 0 Bowel Movements Output, Urine 250 400 Physical Exam General Appearance: Alert, Oriented X3, Cooperative, No Acute Distress Cardiovascular: Regular Rate, Normal S1, Normal S2 Lungs: Clear to Auscultation, Normal Air Movement Abdomen: Normal Bowel Sounds, Soft, No Tenderness Current Medications: Current Medications Sig/Sol Start time Last Medication Dose Route Stop Time Status Admin Albuterol Sulfate 3 ML BID 04/10 1135 04/11 INH 0742 Azithromycin 500 MG DAILY 04/09 1000 AC 04/10 Sodium Chloride 250 ML IV 04/13 1059 0905 Enoxaparin Sodium 40 MG DAILY 04/10 1145 AC 04/10 SC 1342 Levothyroxine Sodium 0.112 MG DAILY 04/09 0900 AC 04/11 PO 0640 Lorazepam 1 MG TID PRN 04/09 0900 AC PO Methylprednisolone 40 MG Q12 04/10 2200 AC 04/10 IV 2131 Methylprednisolone 40 MG Q8 04/10 0600 DC 04/10 IV 0634 Omeprazole 40 MG DAILY AC 04/10 0700 AC 04/11 PO 0640 Oxycodone HCl 30 MG 4 TIMES/DAY PRN 04/09 0945 AC 04/11 PO 0726 Pravastatin Sodium 20 MG 1700 04/09 1700 AC 04/10 PO 1611 Ropinirole HCl 0.25 MG TID 04/09 1000 AC 04/11 PO 0641 Tiotropium [place] 1 PUF DAILY 04/09 1000 AC 04/10 INH 1151 Tizanidine HCl 4 MG Q6 04/09 1200 AC 04/11 PO 0640 Last 24 Hrs of Lab/Jamison Results Last 24 Hrs of Labs/Mics: Laboratory Tests 04/11/16 0610: Anion Gap 12, Estimated GFR > 60, BUN/Creatinine Ratio 31.4 H Microbiology 04/10 1150 LOWER RESP: Respiratory Culture - RES 04/10 115 LOWER RESP: Gram Stain - RES Assessment/Plan Assessment: 66-year-old woman current smoker with past medical history significant for hypothyroidism, CVA with minimal neurological deficits, COPD on nocturnal BiPAP and 3 L of oxygen in the morning, chronic back pain admitted to [facility] after she was found unresponsive, found to have hypercarbic hypoxic respiratory failure. Today she feels that her breathing has improved. Requiring increased oxygen requirement. Plan: Hypercarbic hypoxic respiratory failure secondary to COPD exacerbation On nocturnal BiPAP Patient desaturated to 79% on walking from bed to the bathroom on 2 L, her oxygen requirement went up to 6 L to maintain a saturation of 90% on ambulation TRC with nebs Will be Solu-Medrol every 12hrs today On azithromycin day 3 of 5 on Breo at home will hold while in the hospital as we don't carry it Smoking cessation is given this morning. As she has started cutting down her cigarettes (4/day) patient is contemplation stage this time. When asked for the reason for smoking, she said it was more of a habit. Suggested to stop to analyze why reaches for a cigarette. Pulmn on board appreciate recommendations Hypothyroidism Continue home dose of Synthyroid CAD Continue statin Heart healthy diet DVT prophylaxis with Lovenox Patient is DNR/DNI Problem List: 1. Hypercapnic respiratory failure 2. COPD (chronic obstructive pulmonary disease) Pain Ratin Pain Location: Not applicable Pain Goal: Pain 4 or less Pain Plan: current regimen Tomorrow's Labs & Rationales: none required MAIKOL ALLEN MD 04/11/16 1221: Attending MD Review Statement Attending Statement Attending MD Statement: examined this patient, discuss w/resident/PA/FILLING OPERATOR, agreed w/resident/PA/FILLING OPERATOR, reviewed EMR data (avail) Attending Assessment/Plan: 66F PMH COPD on nocturnal home oxygen, history of CVA, chronic back pain on chronic opioids presenting with confusion, unresponsiveness, and dyspnea in the setting of acute hypercarbic respiratory failure. Dry cough and worsenin dyspnea for 2-3 days, poorly compliant with CPAP, continues to smoke. Started on BiPAP initially in ED with improvement in mental status. Patient more dyspneic today. Desaturates to 78% on 2L while ambulating, required 6L to ambulate and appears cyanotic. 1. Acute hypercarbic and hypoxemic respiratory failure 2. Acute exacerbation of COPD 3. Unresponsiveness (resolved) 4. Chronic lower back pain Plan - Continue Solumedrol 40mg q12h today, change to PO Prednisone tomorrow - TRC/nebulizer treatments - Continue Azithromycin - Continue PRN BiPAP - Oxygen PRN goal sat >92% - Continue home medicaitons - DVT PPx - Follow pulmonary recommendations - Anticipated discharge tomorrow on Prednisone taper with outpatient follow up - Please send CMR to pharmacy and place anticipated discharge order - No labs necessary tomorrow
[2016-04-11] MEDS ORDERED: PREDNISONE20 M1 PO (09:50)
[2016-04-11] MEDS ORDERED: AZITHROMYCIN500 M3 PO (09:50)
[2016-04-11] MEDS ORDERED: LISINOPRIL10 M1 PO (09:56)
--- NOTE | 2016-04-11 09:56 | PN- Pulmonary ---
Subjective HPI/Critical Care Issues: pt seen and examined doing well today anticipating dc no n/v/d/c no cp dyspnea at baseline Objective Current Medications: Current Medications Sig/Sol Start time Last Medication Dose Route Stop Time Status Admin Albuterol Sulfate 3 ML BID 04/10 1135 AC 04/11 INH 0742 Azithromycin 500 MG DAILY 04/09 1000 AC 04/11 Sodium Chloride 250 ML IV 04/13 1059 0936 Enoxaparin Sodium 40 MG DAILY 04/10 1145 AC 04/11 SC 0936 Levothyroxine Sodium 0.112 MG DAILY AC 04/09 0900 AC 04/11 PO 0640 Lorazepam 1 MG TID PRN 04/09 0900 AC PO Methylprednisolone 40 MG Q12 04/10 2200 AC 04/11 IV 0936 Methylprednisolone 40 MG Q8 04/10 0600 DC 04/10 IV 0634 Omeprazole 40 MG DAILY AC 04/10 0700 AC 04/11 PO 0640 Oxycodone HCl 30 MG 4 TIMES/DAY PRN 04/09 0945 AC 04/11 PO 0726 Pravastatin Sodium 20 MG 1700 04/09 1700 AC 04/10 PO 1611 Ropinirole HCl 0.25 MG TID 04/09 1000 AC 04/11 PO 0641 Tiotropium [place] 1 PUF DAILY 04/09 1000 AC 04/11 INH 0936 Tizanidine HCl 4 MG Q6 04/09 1200 AC 04/11 PO 0640 Vital Signs & I&O Last 24 Hrs of Vitals and I&O: Vital Signs Date Time Temp Pulse Resp B/P Pulse O2 O2 Flow FiO2 Ox Delivery Rate 04/11 812 98.1 63 20 150/82 92 Nasal 4.0L Cannula 04/11 0747 Nasal 2.0L Cannula 04/11 0520 66 93 04/11 0057 64 95 04/11 0036 98.3 67 20 140/90 95 CPAP 04/11 0000 95 CPAP 4.0L 04/10 2246 60 96 04/10 2040 93 Nasal 2.0L Cannula 04/10 1613 130/80 04/10 1600 92 Nasal 2.0L Cannula 04/10 1553 98.3 68 20 152/70 94 Nasal 2.0L Cannula 04/10 1142 Nasal 2.0L Cannula 04/10 1141 92 Nasal 2.0L Cannula Intake & Output 04/11 1600 04/11 0800 04/11 0000 Intake Total 50 170 Output Total 250 400 Balance -200 -230 Intake, IV 0 20 Intake, Oral 50 150 Number 0 Bowel Movements Output, Urine 250 400 Exam Other Physical Findings: General - Alert, awake and oriented HEENT - normocephalic, atraumatic Cardiovascular - S1, S2 Lungs - bilatearl rare rhonchi, prolonged end expiratory phase Abdomen - soft, bowel sounds positive, no tenderness Extremities - without edema or cyanosis Results Last 24 Hrs of Lab Results: Laboratory Tests 04/11/16 0610: Anion Gap 12, Estimated GFR > 60, BUN/Creatinine Ratio 31.4 H Impression/Plan Impression/Plan Impression/Plan: Impression 66 year old woman admitted for hypercarbic respiratory failure after resuming smoking. CVA hemorrhagic history left cerebral hemisphere. 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 Patient now DNR/DNI. A tiny PFO noted. ROBINA without evidence of thrombus or mass apical wall motion abnormalities were not noted. Restless leg syndrome controlled on Requip three times daily. Plan -40mg prednisone for 5 days then stop -zithromax 5 days -trc/nebs -breo at home - can bring in her own, or wait until d/c -nocturnal CPAP @ 6cmH20 nocturnally -smoking cessation counseling -dvt prophylaxis at all times
--- NOTE | 2016-04-11 11:18 | NUR ---
PATIENT AMBULATED FROM BED TO BATHROOM AND BACK ON 2L NC; WHEN BACK TO BED PATIENT DENIED SHORTNESS OF BREATH BUT HAD AN O2 SAT OF 79%; DR ALLEN AND TEAM MADE AWARE; PATIENT TO BE AMBULATED ON O2 TO DETERMINE O2 NEED; PATIENT 86% ON 2L AMBULATING; INCREASED TO 3L 87%; INCREASED TO 4L; 88%; INCREASED TO 6L O2 AND AMBULATING NOW AT 91%; DR ALLEN AND TEAM AWARE; PATIENT 93% ON 2L AT REST; WILL CONTINUE TO MONITOR PATIENT;
[2016-04-11 16:15] VITALS: BP 148/80
--- NOTE | 2016-04-11 23:24 | NUR ---
NURSING NOTE; PT BLOOD PRESSURE IS 180/92 AND PULSE IS 68. THIS RN CALLED [phone] AND NOTIFIED HER. WILL CONTINUE TO MONITOR.
--- NOTE | 2016-04-11 23:30 | NUR ---
PT BP 180/92. MD MADE AWARE. LISINOPRIL ORDERED BY AND GIVEN. WILL RECHECK BLOOD PRESSURE.
[2016-04-12] VITALS (8 sets, daily range): BP systolic 140–200; BP diastolic 70–106
--- NOTE | 2016-04-12 05:15 | NUR ---
PT BLOOD PRESSURE 200/106. BLOOD PRESSURE WAS RECHECKED BY A 2ND NURSE. MD NOTIFIED AND WILL ORDER MEDICATIONS IV PUSH AND WILL COME UP TO ASSESS PT.
--- NOTE | 2016-04-12 05:45 | Event Note ---
Event Note Event Note: We were alerted at 11:30 PM that patient's blood pressure was elevated at 180/ 92. We resumed patient's upxzh-pr-nqhzxfkba lisinopril 10 mg PO QD, which had been initially held on admission due to hypotension. At 5 AM, patient's blood pressure was elevated at 200/106 despite receiving 10 mg of lisinopril. Upon examination, patient appeared to be comfortable. She denied chest pain or palpitations, but endorsed anxiety regarding her potential discharge tomorrow. Blood pressure could be be elevated because home lisinopril was never restarted however it could also be secondary to anxiety. Heart and lung exams were unremarkable. Troponins, EKG and hydralazine 10 mg IV push were ordered.
--- NOTE | 2016-04-12 08:15 | NUR ---
RECEIVED FROM 2NB ROOM 201, TELE HOLD, SECONDARY TO +TROPONIN: 0.18 AND HYPERTENSION. SETTLED PATIENT INTO ROOM, PLACED ON MONITOR, NSR, LA 0.12, QRS 0.04. PATIENT ALERT ORIENTED X3, ON 2L NC. VITALS: BP 160/80, P 74, TEMP 98.8, RR 22, PULSE OX ON 2L NC = 93%. NO COMPLAINTS OF CHEST PAIN, DIZZINESS, OR SHORTNESS OF BREATH, RATING 6/10 TO CHRONIC BACK PAIN. SEE NURSING ASSESSMENT FLOWSHEETS FOR FURTHER DOCUMENTATION. REVIEWED POC WITH PATIENT, CALL ALEJANDRA IN REACH, BED ALARM ON. PER PATIENT OKAY TO NOTIFY FAMILY OF TRANSFER. CALLED MATT .
--- NOTE | 2016-04-12 08:31 | NUR ---
LATE ENTRY: PT WAS GIVEN IV HYDRALAZINE BY 108 FOR BP 200/106. PT ON HEART MONITOR. AFTER HALF AN HOUR BLOOD PRESSURE WAS RECHECKED AND CAME DOWN TO 160/72. STAT TROPONIN AND ELECTROLYTES WERE DRAWN AND STAT EKG. LAB CALLED WITH CRITICAL LAB VALUE OF TROPONIN OF 0.18 AND STAT ORDER WAS PLACED TO TRANSFER PT TO TELE. NO BEDS WERE AVAILABLE IN TELE SO PT WILL BE SENT DOWN TO ICU A HOLD UNTIL A BED BECOMES AVAILABLE IN TELE. PT WAS TRANSFERED DOWN TO ICU BY THIS RN AND [facility] 108. PT REMAINED ON THE HEART MONITOR AT THIS TIME. PTS BELONGINGS AND MEDICATIONS WERE TRANSFERRED WITH PT. REPORT GIVEN TO OMAR BAH.
--- NOTE | 2016-04-12 09:01 | Cons- Cardiology ---
General Information and HPI Consulting Request Date of Consult: 04/12/16 Requested By: MAIKOL ALLEN MD Reason for Consult: Severe hypertension and positive troponin Source of Information: patient, old records Exam Limitations: no limitations History of Present Illness: Tamia Arias is a 66-year-old female with advanced COPD. He was recently admitted for unresponsiveness and hypercarbic respiratory failure. She has clinically improved and was on the general medicine floor. However this morning she was noted to be severely hypertensive and a troponin was positive at 0.18 and she was moved to the intensive care unit. She was given some hydralazine and lisinopril and in the ICU her blood pressure was 160/80. She did not give history of chest pain. Her EKG did not show any acute changes. The patient was previously here in July 2015 with a left cerebellar hemorrhage CVA. At that time she had positive troponin to a peak of 5.24. Further evaluation of this was planned as an outpatient. The patient tells me that she had an outpatient stress test which was "okay" and did not go for cardiac catheterization or any other testing. This was later confirmed to me by Dr. Molina. Allergies/Medications Allergies: Coded Allergies: diazepam (SWELLING 07/14/15) gabapentin (UNKNOWN 07/14/15) methadone (SWELLING 07/14/15) NSAIDS (Non-Steroidal Anti-Inflamma (Intermediate, HISTORY OF ULCERS 07/14/15) morphine (Intermediate, AGITATION 07/14/15) adhesive tape (RASH 07/14/15) Home Med List: Albuterol Sulfate (Ventolin Hfa) 90 MCG HFA.AER.AD 2 PUF INH Q4-6 PRN COPD ( Reported) Azithromycin 500 MG TABLET 1 TAB PO DAILY COPD ERGOCALCIFEROL (VITAMIN D2) (Vitamin D2) 50,000 UNIT CAPSULE 1 CAP PO Q10D VIT D DEFFICIENCY (Reported) FLUTICASONE/VILANTEROL (Breo Ellipta 100-25 Mcg INH) 100 MCG-25 MCG/DOSE BLST.W.DEV 1 PUFF INH DAILY copd Levothyroxine Sodium 112 MCG TABLET 1 TAB PO DAILY thyroid (Reported) Lisinopril 10 MG TABLET 1 TAB PO DAILY htn (Reported) Lorazepam (Ativan) 1 MG TABLET 1 TAB PO TID ANXIETY (Reported) Omeprazole 20 MG CAPSULE.DR 40 MG PO DAILY AC [facility] OXYCODONE HCL (Oxycodone HCl) 30 MG TABLET 1 TAB PO 4 TIMES/DAY PRN PAIN ( Reported) Pravastatin Sodium (Pravachol) 20 MG TABLET 1 TAB PO DAILY CHOLESTEROL ( Reported) Prednisone 20 MG TABLET 2 TAB PO DAILY COPD EXACERBATION Ropinirole Hydrochloride (Requip 0.5MG) 0.5 MG TAB 0.5 TAB PO TID RESTLESS LEG SYNDROME Tiotropium [place]vin (Spiriva) 18 MCG CAP.W.DEV 1 PUF INH DAILY COPD (Reported) Tizanidine HCl (Zanaflex) 4 MG TABLET 1 TAB PO QPM MUSCLE SPASM (Reported) Current Medications: Current Medications Sig/Sol Start time Last Medication Dose Route Stop Time Status Admin Albuterol Sulfate 3 ML BID 04/10 1135 AC 04/11 INH 1931 Aspirin 325 MG DAILY 04/12 1000 AC PO Azithromycin 500 MG DAILY 04/12 1000 AC PO Azithromycin 500 MG DAILY 04/09 1000 DC 04/11 Sodium Chloride 250 ML IV 04/13 1059 0936 Clopidogrel Bisulfate 75 MG ONCE ONE 04/12 799 DC PO 04/12 0801 Enoxaparin Sodium 40 MG DAILY 04/10 1145 AC 04/11 SC 0936 Hydralazine HCl 10 MG ONCE ONE 04/12 0545 DC 04/12 IV 04/12 0546 0608 Levothyroxine Sodium 0.112 MG DAILY AC 04/09 0900 AC 04/12 PO 0546 Lisinopril 10 MG DAILY 04/11 2330 AC 04/12 PO 0118 Lisinopril 10 MG DAILY 04/11 1000 CAN PO Lorazepam 0.5 MG ONCE ONE 04/12 0545 DC 04/12 IV 04/12 0546 0608 Lorazepam 1 MG TID PRN 04/09 0900 AC PO Methylprednisolone 40 MG Q12 04/10 2200 DC 04/11 IV 0936 Metoprolol Tartrate 12.5 MG ONCE ONE 04/12 08 DC PO 04/12 0801 Omeprazole 40 MG DAILY AC 04/10 0700 AC 04/12 PO 0546 Oxycodone HCl 30 MG 4 TIMES/DAY PRN 04/09 0945 AC 04/12 PO 0613 Patient Medication 1 ED .STK-MED ONE 04/11 1338 DC Teaching ED 04/11 1339 Polyethylene Glycol 17 GM DAILY 04/12 1000 AC PO Pravastatin Sodium 20 MG 1700 04/09 1700 AC 04/11 PO 1653 Prednisone 40 MG DAILY 04/12 1000 AC PO Ropinirole HCl 0.25 MG TID 04/09 1000 AC 04/11 PO 2047 Senna/Docusate Sodium 1 TAB BID 04/12 0230 AC PO Tiotropium [place] 1 PUF DAILY 04/09 1000 AC 04/11 INH 0936 Tizanidine HCl 4 MG Q6 04/09 1200 AC 04/12 PO 0546 Review of Systems Review of Systems: She has no complaints in the review of systems at this time. Past History Travel History Traveled to [place] past 21 day No Medical History Neurological: restless leg syndrome, NUMBNESS/NEUROPATHY BLE EENT: NONE Cardiovascular: hypertension, HIGH CHOLESTEROL Respiratory: COPD, emphysema Gastrointestinal: constipation, GERD, RUPTURED SPLEEN IN PAST Hepatic: cholelithiasis Renal: NONE Musculoskeletal: chronic back pain, disk herniation, NUMBNESS/BLE SPINAL FUSION Psychiatric: NONE Endocrine: Grave's disease, hypothyroidism Blood Disorders: NONE Cancer(s): NONE DIRECTOR OF CLAIMS/Reproductive: BRYNN Surgical History Surgical History: cholecystectomy, hysterectomy, spinal fusion, ROTATOR CUFF X 2 cervical and lumbar surgery Family History Relations & Conditions If Any: Relation not specified for: *No pertinent family history Psychosocial History Where Do You Live? Home Services at Home: Oxygen Smoking Status: Current Everyday Smoker (1 pack 3 days) ETOH Use: denies use, 6 Illicit Drug Use: denies illicit drug use, UTD Exam & Diagnostic Data Vital Signs and I&O Vital Signs Date Time Temp Pulse Resp B/P Pulse O2 O2 Flow FiO2 Ox Delivery Rate 04/12 0608 200/106 04/12 0530 160/72 04/12 0530 75 160/72 04/12 0504 200/106 04/12 0118 180/92 04/12 0027 98.1 68 20 180/92 94 04/12 0024 69 96 04/12 0000 94 CPAP 04/11 2249 95 04/11 1615 98.5 63 20 148/80 91 Nasal 2.0L Cannula 04/11 1600 Nasal 2.0L Cannula Intake & Output 04/12 1600 04/12 0800 04/12 0000 04/11 1600 04/11 0804/11 0000 Intake Total 120 800 750 50 170 Output Total 450 900 400 250 400 Balance -330 -100 350 -200 -230 Intake, IV 250 0 20 Intake, Oral 120 800 500 50 150 Number 0 Bowel Movements Output, Urine 450 900 400 250 400 Physical Exam: On physical she is comfortable and in no distress HEENT exam is normal Chest reveals decreased breath sounds and no rales Heart reveals regular rhythm and no murmurs Extremities decreased pulses and no edema Labs/Jamison Results: Laboratory Tests 04/12 04/12 04/11 0547 0547 0610 Chemistry Sodium (137 - 145 mmol/L) 141 136 L Potassium (3.5 - 5.1 mmol/L) 3.8 3.9 Chloride (98 - 107 mmol/L) 88 L 90 L Carbon Dioxide (22 - 30 mmol/L) 38 H 34 H Anion Gap (5 - 16) 14 12 BUN (7 - 17 mg/dL) 21 H 22 H Creatinine (0.5 - 1.0 mg/dL) 0.8 0.7 Estimated GFR (>60 ml/min) > 60 > 60 BUN/Creatinine Ratio (7 - 25 %) 26.3 H 31.4 H Troponin I (< 0.11 ng/ml) 0.18 *H Diagnostic Data EKG Results EKG shows sinus rhythm, inferior Q waves, no ST-T wave abnormalities CXR Results Chest x-ray on admission showed emphysema only Assessment/Plan Assessment/Plan This patient was noted to have very elevated blood pressure on the floor. He was moved to the ICU and a troponin was positive at 0.18. She is not symptomatic from a cardiac standpoint. There are no EKG changes. Her blood pressure is a little better now. Recommendations: 1. Serial EKG and enzymes. 2. Monitor blood pressures 3. Continue with lisinopril and low-dose beta tete. Add other antihypertensive medications as necessary to control blood pressure. 4. No plans for invasive or interventional cardiac evaluation at this time pending results of evaluation and review of previous testing. Consult Acknowledgment - Thank you for your consult request.
--- NOTE | 2016-04-12 09:19 | PN- Housestaff ---
RAFAL RASHEED,CHARLES 04/12/16 0919: Subjective Follow-up For: COPD exacerbation Complaints: no complaints Tele-Events Since Last Visit: Transfered to ICU overnight for telemetry monitoring. HR 65-80, BP are in a range of 200/100mmHg after giving a dose of lisinopril and hydralazine came down to 160/90mmHg. Subjective: I saw and examined the patient today morning. She is lying comfortably on the bed. She denies any chest pain, pressure, palpitations. No n/v/d Review of Systems Constitutional: Reports: no symptoms, see HPI. EENTM: Reports: no symptoms. Cardiovascular: Reports: no symptoms. Respiratory: Reports: no symptoms. Gastrointestinal: Reports: no symptoms. Genitourinary: Reports: no symptoms. Comments: ROS negative except the above. Objective Last 24 Hrs of Vital Signs/I&O Vital Signs Date Time Temp Pulse Resp B/P Pulse O2 O2 Flow FiO2 Ox Delivery Rate 04/12 1600 97.8 49 16 140/70 Nasal 2.0L Cannula 04/12 1600 93 Nasal 2.0L Cannula 04/12 1331 63 156/78 04/12 1125 54 150/78 04/12 1005 94 Nasal 2.0L Cannula 04/12 0908 74 160/80 04/12 0815 93 Nasal 2.0L Cannula 04/12 0815 98.8 74 22 160/80 93 Nasal 2.0L Cannula 04/12 0608 200/106 04/12 0530 160/72 04/12 0530 75 160/72 04/12 0504 200/106 04/12 0118 180/92 04/12 0027 98.1 68 20 180/92 94 04/12 0024 69 96 04/12 0000 94 CPAP 04/11 2249 95 Intake & Output 04/12 1600 04/12 0800 04/12 0000 Intake Total 560 120 800 Output Total 450 450 900 Balance 110 -330 -100 Intake, Oral 560 120 800 Output, Urine 450 450 900 Physical Exam General Appearance: Alert, Oriented X3, Cooperative Skin: No Rashes, No Breakdown HEENT: Atraumatic, PERRLA, EOMI Neck: Supple, No JVD Assessment/Plan Assessment: 66-year-old woman current smoker with past medical history significant for hypothyroidism, CVA with minimal neurological deficits, COPD on nocturnal BiPAP and 3 L of oxygen in the morning, chronic back pain admitted to [facility] after she was found unresponsive, found to have hypercarbic hypoxic respiratory failure. Today she feels that her breathing has improved. Requiring increased oxygen requirement. Plan: Hypercarbic hypoxic respiratory failure secondary to COPD exacerbation * On nocturnal BiPAP * Patient desaturated to 79% on walking from bed to the bathroom on 2 L, her oxygen requirement went up to 6 L to maintain a saturation of 90% on ambulation * TRC with nebs * On prednisone taper 30mg * On azithromycin day 4 of 5 * on Breo at home will hold while in the hospital as we don't carry it * Smoking cessation is given this morning. As she has started cutting down her cigarettes (4/day) patient is contemplation stage this time. When asked for the reason for smoking, she said it was more of a habit. Suggested to stop to analyze why reaches for a cigarette. * Pulmn on board appreciate recommendations * overnight developed high blood pressure, so transfered to ICU for tele monitoring * Received a single dose of lisinopril 10mg oral (home dose) and IV hydralazine 10mg overnight. * Today morning her BP is high despite the meds she received overnight. An additional dose of lisinopril 10mg oral and metoprolol 12.5mg * Her BP is low in 50's today afternoon. Hypothyroidism * Continue home dose of Synthyroid CAD * Continue statin Heart healthy diet DVT prophylaxis with Lovenox Patient is DNR/DNI Problem List: 1. COPD (chronic obstructive pulmonary disease) 2. Hypercapnic respiratory failure Pain Ratin Pain Location: n/a Pain Goal: Pain 4 or less Pain Plan: Tylenol prn Tomorrow's Labs & Rationales: ICU bundle cbc MAIKOL ALLEN MD 04/12/16 1429: Attending MD Review Statement Attending Statement Attending MD Statement: examined this patient, discuss w/resident/PA/ADHESIVE SPRAYER, agreed w/resident/PA/ADHESIVE SPRAYER, reviewed EMR data (avail) Attending Assessment/Plan: 66F PMH COPD on nocturnal home oxygen, history of CVA, chronic back pain on chronic opioids presenting with confusion, unresponsiveness, and dyspnea in the setting of acute hypercarbic respiratory failure. Dry cough and worsenin dyspnea for 2-3 days, poorly compliant with CPAP, continues to smoke. Started on BiPAP initially in ED with improvement in mental status. Hypertensive overnight, troponin checked which was weakly positive. Patient denies chest pain, palpitations. Improved breathing today. 1. Acute hypercarbic and hypoxemic respiratory failure 2. Acute exacerbation of COPD 3. Unresponsiveness (resolved) 4. Chronic lower back pain Plan - Continue Prednisone - Follow cardiology recommendations - Continue with current Lisinopril - Trend cardiac enzymes - TRC/nebulizer treatments - Continue Azithromycin - Continue PRN BiPAP - Oxygen PRN goal sat >92% - Continue home medicaitons - DVT PPx - Follow pulmonary recommendations
--- NOTE | 2016-04-12 11:20 | PN- Pulmonary ---
Subjective HPI/Critical Care Issues: pt seen and examined hypertensive overnight dc held 94% on 2LNC bp improved trop 0.18 no cp, no palpitations at respiratory baseline Objective Current Medications: Current Medications Sig/Sol Start time Last Medication Dose Route Stop Time Status Admin Albuterol Sulfate 3 ML BID 04/10 1135 AC 04/12 INH 1002 Aspirin 325 MG DAILY 04/12 1000 AC 04/12 PO 0907 Azithromycin 500 MG DAILY 04/12 1000 AC PO Azithromycin 500 MG DAILY 04/09 1000 DC 04/11 Sodium Chloride 250 ML IV 04/13 1059 0936 Clopidogrel Bisulfate 75 MG ONCE ONE 04/12 08 DC 04/12 PO 04/12 0801 0907 Enoxaparin Sodium 40 MG DAILY 04/10 1145 AC 04/11 SC 0936 Hydralazine HCl 10 MG ONCE ONE 04/12 0545 DC 04/12 IV 04/12 0546 0608 Levothyroxine Sodium 0.112 MG DAILY AC 04/09 0900 AC 04/12 PO 0546 Lisinopril 10 MG DAILY 04/11 2330 AC 04/12 PO 0118 Lorazepam 0.5 MG ONCE ONE 04/12 0545 DC 04/12 IV 04/12 0546 0608 Lorazepam 1 MG TID PRN 04/09 0900 AC PO Methylprednisolone 40 MG Q12 04/10 2200 DC 04/11 IV 0936 Metoprolol Tartrate 12.5 MG ONCE ONE 04/12 0800 DC 04/12 PO 04/12 0801 0908 Omeprazole 40 MG DAILY AC 04/10 0700 AC 04/12 PO 0546 Oxycodone HCl 30 MG 4 TIMES/DAY PRN 04/09 0945 AC 04/12 PO 0613 Patient Medication 1 ED .STK-MED ONE 04/11 1338 DC Teaching ED 04/11 1339 Polyethylene Glycol 17 GM DAILY 04/12 1000 AC PO Potassium Chloride 40 MEQ ONCE ONE 04/12 0915 DC 04/12 PO 04/12 0916 0915 Pravastatin Sodium 20 MG 1700 04/09 1700 AC 04/11 PO 1653 Prednisone 40 MG DAILY 04/12 1000 AC PO Ropinirole HCl 0.25 MG TID 04/09 1000 AC 04/11 PO 2047 Senna/Docusate Sodium 1 TAB BID 04/12 0230 AC PO Tiotropium [place] 1 PUF DAILY 04/09 1000 AC 01/06 INH 0936 Tizanidine HCl 4 MG Q6 04/09 1200 AC 04/12 PO 0546 Vital Signs & I&O Last 24 Hrs of Vitals and I&O: Vital Signs Date Time Temp Pulse Resp B/P Pulse O2 O2 Flow FiO2 Ox Delivery Rate 04/12 1005 94 Nasal 2.0L Cannula 04/12 0908 74 160/80 04/12 0815 93 Nasal 2.0L Cannula 04/12 0815 98.8 74 22 160/80 93 Nasal 2.0L Cannula 04/12 0608 200/106 04/12 0530 160/72 04/12 0530 75 160/72 04/12 0504 200/106 04/12 0118 180/92 04/12 0027 98.1 68 20 180/92 94 04/12 0024 69 96 04/12 0000 94 CPAP 04/11 2249 95 04/11 1615 98.5 63 20 148/80 91 Nasal 2.0L Cannula 04/11 1600 Nasal 2.0L Cannula Intake & Output 04/12 1600 04/12 0800 04/12 0000 Intake Total 120 800 Output Total 450 900 Balance -330 -100 Intake, Oral 120 800 Output, Urine 450 900 Exam Other Physical Findings: General - Alert, awake and oriented HEENT - normocephalic, atraumatic Cardiovascular - S1, S2 Lungs - bilatearl rare rhonchi, prolonged end expiratory phase Abdomen - soft, bowel sounds positive, no tenderness Extremities - without edema or cyanosis Results Last 24 Hrs of Lab Results: Laboratory Tests 04/12/16 0900: Troponin I Cancelled 04/12/16 0547: Troponin I 0.18 *H 04/12/16 0547: Anion Gap 14, Estimated GFR > 60, BUN/Creatinine Ratio 26.3 H, Phosphorus 3.4, Magnesium 1.8 Impression/Plan Impression/Plan Impression/Plan: Impression 66 year old woman admitted for hypercarbic respiratory failure after resuming smoking. CVA hemorrhagic history left cerebral hemisphere. 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 Patient now DNR/DNI. A tiny PFO noted. ROBINA without evidence of thrombus or mass apical wall motion abnormalities were not noted. Restless leg syndrome controlled on Requip three times daily. Troponin elevation in setting of elevated BP Plan - reduce prednisone to 30mg today and reduce by 10mg every 2 days until off - f/u cardiology recs, troponin, ekg f/u, bp control - zithromax 5 days - trc/nebs - breo at home - can bring in her own, or wait until d/c - nocturnal CPAP @ 6cmH20 nocturnally - smoking cessation counseling - dvt prophylaxis at all times
[2016-04-13 08:14] VITALS: BP 180/82
[2016-04-13 08:21] LABS: ABSOLUTE BASOPHIL COUNT 0 /CUMM (0.0-0.2); ABSOLUTE EOSINOPHIL COUNT 0.1 /CUMM (0.0-0.7); ABSOLUTE GRANULOCYTE CT 3.1 /CUMM (1.4-6.5); ABSOLUTE LYMPH COUNT 2.1 /CUMM (1.2-3.4); ABSOLUTE MONOCYTE COUNT 0.6 /CUMM (0.10-0.60); BASOPHIL % 0.5 % (0.0-2.0); EOSINOPHIL % 0.8 % (0-5); GRANULOCYTE % 53.2 % (42.2-75.2); HEMATOCRIT 44.5 % (37-47); MEAN CORPUSCULAR HGB 29.3 PG (27.0-31.0); MEAN CORPUSCULAR HGB CONC 32.9 G/DL (33.0-37.0); MEAN CORPUSCULAR VOLUME 89.1 FL (81.0-99.0); MEAN PLATELET VOLUME 9.5 FL (7.4-10.4); PLATELET COUNT 157 /CUMM (130-400); RBC DISTRIBUTION WIDTH 15.1 % (11.5-14.5); WHITE BLOOD CELL COUNT 5.9 /CUMM (4.8-10.8)
[2016-04-13 08:30] VITALS: BP 170/79
[2016-04-13 09:43] VITALS: BP 160/70
--- NOTE | 2016-04-13 11:04 | PN- Pulmonary ---
Subjective HPI/Critical Care Issues: pt seen and examined afebrile bp improved saturating 96% on 2LNC no n/v/d/c no miranda no cp dyspnea at baseline Objective Current Medications: Current Medications Sig/Sol Start time Last Medication Dose Route Stop Time Status Admin Albuterol Sulfate 3 ML BID 04/10 1135 AC 04/13 INH 1021 Aspirin 325 MG DAILY 04/12 1000 AC 04/13 PO 0944 Azithromycin 500 MG DAILY 04/12 1000 AC 04/13 PO 0944 Enoxaparin Sodium 40 MG DAILY 04/10 1145 AC 04/13 SC 0945 Levothyroxine Sodium 0.112 MG DAILY AC 04/09 0900 AC 04/13 PO 0553 Lisinopril 10 MG DAILY 04/11 2330 AC 04/13 PO 0816 Lorazepam 1 MG TID PRN 04/09 09 AC PO Omeprazole 40 MG DAILY AC 04/10 0700 AC 04/13 PO 0552 Oxycodone HCl 30 MG 4 TIMES/DAY PRN 04/09 0945 AC 04/13 PO 0552 Polyethylene Glycol 17 GM DAILY 04/12 1000 AC PO Pravastatin Sodium 20 MG 1700 04/09 1700 AC 04/12 PO 1610 Prednisone 10 MG DAILY@1130 04/16 1130 AC PO 04/18 1129 Prednisone 20 MG DAILY@1130 04/14 1130 AC PO 04/16 1129 Prednisone 30 MG DAILY@1130 04/13 1130 AC PO 04/14 1129 Prednisone 30 MG DAILY 04/13 1000 CAN PO Prednisone 30 MG DAILY 04/12 1130 DC 04/12 PO 04/18 1129 1122 Prednisone 30 MG DAILY@1130 04/12 1130 CAN PO 04/14 1129 Prednisone 40 MG DAILY 04/12 1000 DC PO Ropinirole HCl 0.25 MG TID 04/09 1000 AC 04/13 PO 0944 Senna/Docusate Sodium 1 TAB BID 04/12 0230 AC 04/12 PO 2138 Tiotropium [place] 1 PUF DAILY 04/09 1000 AC 04/13 INH 0821 Tizanidine HCl 4 MG Q6 04/09 1200 AC 04/13 PO 0552 Vital Signs & I&O Last 24 Hrs of Vitals and I&O: Vital Signs Date Time Temp Pulse Resp B/P Pulse O2 O2 Flow FiO2 Ox Delivery Rate 04/13 1023 96 Nasal 2.0L Cannula 04/13 0943 160/70 04/13 0830 98.2 60 20 170/79 96 Nasal 3.0L Cannula 04/13 0816 67 18 180/82 04/13 0814 67 180/82 04/13 0013 52 93 04/13 0000 BIPAP 04/12 2248 56 94 04/12 2243 97.6 48 18 142/80 95 Nasal Cannula 04/12 2056 98.0 55 20 148/80 92 Nasal 2.0L Cannula 04/12 1911 95 Nasal 2.0L Cannula 04/12 1600 97.8 49 16 140/70 Nasal 2.0L Cannula 04/12 1600 93 Nasal 2.0L Cannula 04/12 1331 63 156/78 04/12 1125 54 150/78 Intake & Output 04/13 1600 04/13 0800 04/13 0000 Intake Total 460 Output Total Balance 460 Intake, IV 10 Intake, Oral 450 Number 0 Bowel Movements Exam Other Physical Findings: General - Alert, awake and oriented HEENT - normocephalic, atraumatic Cardiovascular - S1, S2 Lungs - bilatearl rare rhonchi, prolonged end expiratory phase Abdomen - soft, bowel sounds positive, no tenderness Extremities - without edema or cyanosis Results Last 24 Hrs of Lab Results: Laboratory Tests 04/13/16 0620: Anion Gap 10, Estimated GFR > 60, BUN/Creatinine Ratio 35.0 H, CBC w Diff NO MAN DIFF REQ, RBC 5.00, MCV 89.1, MCH 29.3, RDW 15.1 H, MPV 9.5, Gran % 53.2, Lymphocytes % 36.1, Monocytes % 9.4 H, Eosinophils % 0.8, Basophils % 0.5, Absolute Granulocytes 3.1, Absolute Lymphocytes 2.1, Absolute Monocytes 0.6, Absolute Eosinophils 0.1, Absolute Basophils 0, PUBS MCHC 32.9 L 04/12/16 1800: Troponin I Cancelled 04/12/16 1230: Troponin I 0.16 *H Impression/Plan Impression/Plan Impression/Plan: Impression 66 year old woman admitted for hypercarbic respiratory failure after resuming smoking. CVA hemorrhagic history left cerebral hemisphere. It was determined that she had CORN DETASSELER stroke and hemorrhage. Patient now DNR/DNI. A tiny PFO noted. ROBINA without evidence of thrombus or mass apical wall motion abnormalities were not noted. Restless leg syndrome controlled on Requip three times daily. Troponin elevation in setting of elevated BP Plan - taper prednisone as ordered, reduce by 10mg every 2 days until off - f/u cardiology recs, troponin, ekg f/u, bp control - zithromax 5 days - trc/nebs - breo at home - can bring in her own, or wait until d/c - nocturnal CPAP @ 6cmH20 nocturnally - smoking cessation counseling - dvt prophylaxis at all times DC planning
--- NOTE | 2016-04-13 11:50 | PN- Cardiology ---
Subjective Subjective: The patient is feeling well today. Her blood pressure is borderline in the 160 range systolic although a couple of readings were lower. Her troponin peaked at 0.18 and went down to 0.16 subsequently. There have been no EKG changes and no arrhythmias. Objective Vital Signs and I&Os Vital Signs Date Time Temp Pulse Resp B/P Pulse O2 O2 Flow FiO2 Ox Delivery Rate 04/13 1023 96 Nasal 2.0L Cannula 04/13 0943 160/70 04/13 0830 98.2 60 20 170/79 96 Nasal 3.0L Cannula 04/13 0816 67 18 180/82 04/13 0814 67 180/82 04/13 0013 52 93 04/13 0000 BIPAP 04/12 2248 56 94 04/12 2243 97.6 48 18 142/80 95 Nasal Cannula 04/12 2056 98.0 55 20 148/80 92 Nasal 2.0L Cannula 04/12 1911 95 Nasal 2.0L Cannula 04/12 1600 97.8 49 16 140/70 Nasal 2.0L Cannula 04/12 1600 93 Nasal 2.0L Cannula 04/12 1331 63 156/78 Intake & Output 04/13 1600 04/13 0800 04/13 0000 04/12 1600 04/12 0804/12 0000 Intake Total 460 560 120 800 Output Total 450 450 900 Balance 460 110 -330 -100 Intake, IV 10 Intake, Oral 450 560 120 800 Number 0 Bowel Movements Output, Urine 450 450 900 Physical Exam: She has mild expiratory wheezing only. The rest of her exam is unremarkable. Current Medications: Current Medications Sig/Sol Start time Last Medication Dose Route Stop Time Status Admin Albuterol Sulfate 3 ML BID 04/10 1135 AC 04/13 INH 1021 Aspirin 325 MG DAILY 04/12 1000 AC 04/13 PO 0944 Azithromycin 500 MG DAILY 04/12 1000 AC 04/13 PO 0944 Enoxaparin Sodium 40 MG DAILY 04/10 1145 AC 04/13 SC 0945 Levothyroxine Sodium 0.112 MG DAILY AC 04/09 899 AC 04/13 PO 0553 Lisinopril 10 MG DAILY 04/11 2330 AC 04/13 PO 0816 Lorazepam 1 MG TID PRN 04/09 899 AC PO Omeprazole 40 MG DAILY AC 04/10 07 AC 04/13 PO 0552 Oxycodone HCl 30 MG 4 TIMES/DAY PRN 04/09 0945 AC 04/13 PO 0552 Polyethylene Glycol 17 GM DAILY 04/12 1000 AC PO Pravastatin Sodium 20 MG 1700 04/09 1700 AC 04/12 PO 1610 Prednisone 10 MG DAILY@1130 04/16 1130 AC PO 04/18 1129 Prednisone 20 MG DAILY@1130 04/14 1130 AC PO 04/16 1129 Prednisone 30 MG DAILY@1130 04/13 1130 AC PO 04/14 1129 Prednisone 30 MG DAILY 04/12 1130 DC 04/12 PO 04/18 1129 1122 Prednisone 30 MG DAILY@0 04/12 1130 CAN PO 04/14 1129 Ropinirole HCl 0.25 MG TID 04/09 1000 AC 04/13 PO 0944 Senna/Docusate Sodium 1 TAB BID 04/12 0230 AC 04/12 PO 2138 Tiotropium [place] 1 PUF DAILY 04/09 1000 AC 04/13 INH 0821 Tizanidine HCl 4 MG Q6 04/09 1200 AC 04/13 PO 0552 Results Last 48 Hrs of Labs/Mics: Laboratory Tests 04/13/16 0620: Anion Gap 10, Estimated GFR > 60, BUN/Creatinine Ratio 35.0 H, CBC w Diff NO MAN DIFF REQ, RBC 5.00, MCV 89.1, MCH 29.3, RDW 15.1 H, MPV 9.5, Gran % 53.2, Lymphocytes % 36.1, Monocytes % 9.4 H, Eosinophils % 0.8, Basophils % 0.5, Absolute Granulocytes 3.1, Absolute Lymphocytes 2.1, Absolute Monocytes 0.6, Absolute Eosinophils 0.1, Absolute Basophils 0, PUBS MCHC 32.9 L 04/12/16 1800: Troponin I Cancelled 04/12/16 1230: Troponin I 0.16 *H 04/12/16 0900: Troponin I Cancelled 04/12/16 0547: Troponin I 0.18 *H 04/12/16 0547: Anion Gap 14, Estimated GFR > 60, BUN/Creatinine Ratio 26.3 H, Phosphorus 3.4, Magnesium 1.8 Assessment/Plan Assessment/Plan The patient is stable from a cardiac standpoint. She had a minimal troponin rise with elevated blood pressure. From a cardiac standpoint the patient can be discharged on lisinopril 20 mg daily. She should follow-up with pulmonology and Dr. Molina. Continue telemetry? Not applicable
[2016-04-13] MEDS ORDERED: LISINOPRIL10 M1 PO (12:04)
[2016-04-13] MEDS ORDERED: PREDNISONE10 M2 PO (12:14)
[2016-04-13] MEDS ORDERED: AZITHROMYCIN500 M3 PO (15:33)
--- NOTE | 2016-04-13 19:27 | PN- Att Addend ---
Attending Addendum Attending Brief Note 66F PMH COPD on nocturnal home oxygen, history of CVA, chronic back pain on chronic opioids presenting with confusion, unresponsiveness, and dyspnea in the setting of acute hypercarbic respiratory failure. Dry cough and worsenin dyspnea for 2-3 days, poorly compliant with CPAP, continues to smoke. Started on BiPAP initially in ED with improvement in mental status. Patient feels back to baseline today, breathing comfortably, ambulating without dyspnea or chest pain. AFVSS NAD NCAT Supple RRR CTAB, no wheezing Soft, NTND No c/c/e Pulses intact A&Ox3 no focal deficits Laboratory Tests 04/13 0620 Chemistry Sodium (137 - 145 mmol/L) 137 Potassium (3.5 - 5.1 mmol/L) 4.9 Chloride (98 - 107 mmol/L) 90 L Carbon Dioxide (22 - 30 mmol/L) 37 H Anion Gap (5 - 16) 10 BUN (7 - 17 mg/dL) 28 H Creatinine (0.5 - 1.0 mg/dL) 0.8 Estimated GFR (>60 ml/min) > 60 BUN/Creatinine Ratio (7 - 25 %) 35.0 H Hematology CBC w Diff NO MAN DIFF REQ WBC (4.8 - 10.8 /CUMM) 5.9 RBC (4.20 - 5.40 /CUMM) 5.00 Hgb (12.0 - 16.0 G/DL) 14.6 Hct (37 - 47 %) 44.5 MCV (81.0 - 99.0 FL) 89.1 MCH (27.0 - 31.0 PG) 29.3 RDW (11.5 - 14.5 %) 15.1 H Plt Count (130 - 400 /CUMM) 157 MPV (7.4 - 10.4 FL) 9.5 Gran % (42.2 - 75.2 %) 53.2 Lymphocytes % (20.5 - 51.1 %) 36.1 Monocytes % (1.7 - 9.3 %) 9.4 H Eosinophils % (0 - 5 %) 0.8 Basophils % (0.0 - 2.0 %) 0.5 Absolute Granulocytes (1.4 - 6.5 /CUMM) 3.1 Absolute Lymphocytes (1.2 - 3.4 /CUMM) 2.1 Absolute Monocytes (0.10 - 0.60 /CUMM) 0.6 Absolute Eosinophils (0.0 - 0.7 /CUMM) 0.1 Absolute Basophils (0.0 - 0.2 /CUMM) 0 PUBS MCHC (33.0 - 37.0 G/DL) 32.9 L Vital Signs Date Time Temp Pulse Resp B/P Pulse O2 O2 Flow FiO2 Ox Delivery Rate 04/13 1023 96 Nasal 2.0L Cannula 04/13 0843 160/70 04/13 829 98.2 60 20 170/79 96 Nasal 3.0L Cannula 04/13 0716 67 18 180/82 04/13 813 67 180/82 04/13 799 95 Nasal 2.0L Cannula 04/13 0013 52 93 04/13 0000 BIPAP 04/12 2248 56 94 04/12 2243 97.6 48 18 142/80 95 Nasal Cannula 04/126 98.0 55 20 148/80 92 Nasal 2.0L Cannula Intake & Output 04/13 1600 04/13 0800 04/13 0000 Intake Total 480 460 Output Total Balance 480 460 Intake, IV 10 Intake, Oral 480 450 Number 0 Bowel Movements 1. Acute hypercarbic and hypoxemic respiratory failure 2. Acute exacerbation of COPD 3. Unresponsiveness (resolved) 4. Chronic lower back pain Plan - Stable for discharge home - Continue Prednisone - Follow cardiology recommendations - Lisinopril increased to 20mg - Continue Azithromycin - Continue PRN BiPAP - Oxygen PRN goal sat >92% - Continue home medicaitons - Follow pulmonary recommendations
--- NOTE | 2016-04-18 13:28 | Discharge Summary ---
Visit Information Visit Dates Admission Date: 04/09/16 Discharge Date: 04/13/16 Hospital Course Course Attending Physician: MAIKOL ALLEN MD Primary Care Physician: DUGLAS TAVERA Hospital Course: 66-year-old woman current smoker (1 pack in 3 days) past medical history of hypothyroidism post Graves, CVA with minimal residual, COPD on nocturnal BiPAP ( family reports noncompliance) and 3.5 L oxygen in the morning, chronic back pain on oxycodone, restless leg syndrome, hyperlipidemia, brought in family with chief complaint of unresponsiveness. Improved mentation once BiPAP was started in ED. Vital signs on arrival blood pressure 90/52 improved with 1L NS, respiratory 16, temperature 100.1, [place] 94 , O2 saturation 94% on 4 L and then subsequently on BiPAP. ABG shows 7.3 pH, CO2 65, O2 71, WBC 11.9, hemoglobin 16.5, sodium 136, chloride 89, bicarbonate 34, creatinine 0.9, BUN 23 Admitted to General medicine service and the following issues were addressed: Hypercarbic hypoxic respiratory failure Improved with BipaP and was eventually place on NC. Solu-Medrol was initally started and was tapered and was discharged on PO prednisone taper. Was given a 5 day course of azithromycin As Breo was not available at our hospital it was held during her hospitalization and she was advised to restart it upon discharge. Smoking cessation counseling was provided. Pulmonolgy followed her course and she was advised to follow up upon discharge. Elevated troponins She had an episode of hypertension for which troponin were checked and found to be 0.18. Was transferred to tele floor for 24 hr monitoring and trop trended down. Cardiology evaluated her and found her stable from cardiac standpoint. Hypothyroidism Continue home dose of Synthyroid Hypertension Lisinopril was held intially secoundary to hypotension and then was later resumed. CAD Continued statin Heart healthy diet DVT prophylaxis with Lovenox Complications: postitive troponins Allergies: Coded Allergies: diazepam (SWELLING 07/14/15) gabapentin (UNKNOWN 07/14/15) methadone (SWELLING 07/14/15) NSAIDS (Non-Steroidal Anti-Inflamma (Intermediate, HISTORY OF ULCERS 07/14/15) morphine (Intermediate, AGITATION 07/14/15) adhesive tape (RASH 07/14/15) Significant Procedures: SERVICE DATE: 04/09/16 EXAM TYPE: RAD - XRY-PORTABLE CHEST XRAY FINDINGS: Lung volumes are symmetric. There is relative lucency of the upper lungs, in keeping with emphysema. No focal consolidation is seen. No evidence of pneumothorax, pleural effusion, or pulmonary edema. Cardiac size is within normal limits. There is mild prominence of the main pulmonary artery. Calcification is present at the aortic arch. No acute osseous findings are seen. IMPRESSION: No focal consolidation. Emphysema. SERVICE DATE: 04/09/16 EXAM TYPE: CAT - CT HEAD WO IV CONTRAST FINDINGS: There is no evidence of acute intracranial hemorrhage or territorial infarction. No abnormal mass effect or midline shift is seen. Oates to white matter differentiation is well preserved. No extra-axial fluid collections are identified. The ventricles are normal in size. There is a region of encephalomalacia in the inferior left cerebellar hemisphere, at the site of prior hemorrhage seen on 07/16/2015. There is moderate periventricular white matter hypoattenuation consistent with chronic small vessel ischemic disease. A chronic appearing lacunar infarct is noted in the right basal ganglia. There is mild periventricular white matter hypoattenuation consistent with chronic small vessel ischemic disease. The osseous structures and soft tissues are normal. The mastoid air cells and visualized portions of the paranasal sinuses are well aerated. IMPRESSION: No acute intracranial pathology. Chronic changes as described above. Disposition Summary Disposition Principal Diagnosis: Acute hypercarbic and hypoxemic respiratory failure Additional Diagnosis: Acute exacerbation of COPD CAD HTN Hypothryoid Discharge Disposition: home health services Discharge Instructions General Discharge Information Code Status: Do Not Resucitate/Intubat Patient's Diet: heart healthy Patient's Activity: as tolerated Follow-Up Instructions/Appts: Follow up with primary care physician within one week of discharge Follow-up with your medical planner within 2 weeks of discharge Medications at Discharge Discharge Medications: Continue taking these medications: OXYCODONE HCL (Oxycodone HCl) 30 MG TABLET 1 Tablet ORAL 4 TIMES A DAY as needed for PAIN Comments: Last Taken: 10 MG GIVEN ON 07/17/15 Time: 6:14 AM Tizanidine HCl (Zanaflex) 4 MG TABLET 1 Tablet ORAL Every night Days = 30 Comments: Last Taken:04/13/16 Time: 11:42A.M Lorazepam (Ativan) 1 MG TABLET 1 Tablet ORAL THREE TIMES DAILY Days = 30 Comments: NOT GIVEN THIS ADMISSION Pravastatin Sodium (Pravachol) 20 MG TABLET 1 Tablet ORAL DAILY Days = 30 Comments: Last Taken:04/12/16 Time: 4:10P.M Tiotropium [place] (Spiriva) 18 MCG CAP.W.DEV 1 Puff Inhale through mouth DAILY Days = 30 Comments: Last Taken:04/13/16 Time: 8:21A.M Albuterol Sulfate (Ventolin Hfa) 90 MCG HFA.AER.AD 2 Puff Inhale through mouth EVERY 4-6 HOURS NEEDED Days = 30 Comments: Last Taken:04/13/16 Time:10:21A.M ERGOCALCIFEROL (VITAMIN D2) (Vitamin D2) 50,000 UNIT CAPSULE 1 Capsule ORAL Q10D Comments: NOT GIVEN IN THE HOSPITAL FLUTICASONE/VILANTEROL (Breo Ellipta 100-25 Mcg INH) 100 MCG-25 MCG/DOSE BLST.W.DEV 1 PUFF Inhale through mouth DAILY Days = 30 Comments: NOT GIVEN IN THE HOSPITAL Ropinirole Hydrochloride (Requip 0.5MG) 0.5 MG TAB 0.5 Tablet ORAL THREE TIMES DAILY Days = 30 Comments: Last Taken: 07/20/15 Time: 11am Omeprazole (Omeprazole) 20 MG CAPSULE.DR 40 Milligram ORAL DAILY BEFORE BREAKFAST Days = 30 Comments: Last Taken:04/13/16 Time:5:52A.M Levothyroxine Sodium (Levothyroxine Sodium) 112 MCG TABLET 1 Tablet ORAL DAILY Days = 30 Comments: Last Taken:04/13/16 Time:5:53A.M Start taking the following new medications: Prednisone (Prednisone) 10 MG TABLET 1 Tablet ORAL DAILY Qty = 9 No Refills Instructions: TAKE 3 TABS ON 04/14/16 TAKE 2 TABS FROM 04/15/16 - 04/16/16 TAKE 1 TAB FROM 04/17/16 - 04/18/16 THEN STOP Comments: Last Taken:04/13/16 Time:11:44A.M Azithromycin (Azithromycin) 500 MG TABLET 1 Tablet ORAL DAILY Days = 2 No Refills Comments: Last Taken:04/13/16 Time:9:44A.M Azithromycin (Azithromycin) 500 MG TABLET 1 Tablet ORAL DAILY Days = 2 No Refills The following medications have been changed: Old: Lisinopril (Lisinopril) 10 MG TABLET 1 Tablet ORAL DAILY New: Lisinopril (Lisinopril) 10 MG TABLET 2 Tablet ORAL DAILY Days = 30 Comments: Last Taken:04/13/16 Time:8:16A.M Copies To: DUGLAS TAVERA Attending MD Review Statement Documenting Attending: MAIKOL ALLEN MD
== END 2016-04-13 15:50 | disposition home health service (06) | DRG 189 ==
LOC: ERH 06:26 → 2NB 08:59 → ERHI 08:59 → 2NB 20:27 → CRI 04-12 08:25 → 1NO 04-12 20:54
PROVIDERS: Emergency Medicine; Internal Medicine; Internal Medicine Infectious Disease; ADMIT Internal Medicine
PROC: 5A09457 Assistance with Respiratory Ventilation, 24-96 Consecutive Hours, Continuous Positive Airway Pressure (ICD-10-PCS; principal; 2016-04-13)
DX: J96.02 Acute respiratory failure with hypercapnia (principal); Z99.81 Dependence on supplemental oxygen; J44.1 Chronic obstructive pulmonary disease with (acute) exacerbation; Z91.19 Patient's noncompliance with other medical treatment and regimen; Z72.0 Tobacco use; Z77.22 Contact with and (suspected) exposure to environmental tobacco smoke (acute) (chronic); E03.9 Hypothyroidism, unspecified; G25.81 Restless legs syndrome; E78.5 Hyperlipidemia, unspecified; F17.210 Nicotine dependence, cigarettes, uncomplicated; K21.9 Gastro-esophageal reflux disease without esophagitis; I10 Essential (primary) hypertension; G89.29 Other chronic pain
CPT/HCPCS: 1NSP; 2NBP; 36415; 80307; 81001; 82436; 87040; 87070; 87071; 93005; 93010; 96360; 96361; 96374; 99291; J0360; J0456; J1650; J2920; J2930; J3490; J7040; J7512